=== PATIENT | male | born 1930 | race Caucasian/White ===

== ENCOUNTER 2017-02-17 16:15 | Outpatient (CLI) | payer MEDICARE ==
[2017-02-17 16:52] LABS: Hemoglobin 9.9 g/dL (14.0-18.0); Mean Corpuscular HGB CONC 31.9 g/dL (32.0-36.0); Mean Corpuscular Hemoglobin 35.2 pg (27.0-31.0); Mean Platelet Volume 6.5 fL (7.4-10.4); Platelet Count 274 thou/uL (130-400); RBC Distribution Width 14.4 % (11.5-14.5); Red Blood Cell (RBC) Count 2.82 mill/uL (4.70-6.10); White Blood Cell (WBC) Count 13.1 thou/uL (4.8-10.8)
[2017-02-17 17:16] LABS: Anion Gap 9 mmol/L (10-20); BUN (Urea Nitrogen) 15 mg/dL (8.4-25.7); Calc. Creatinine Clearance 0 mL/min (70-130); Calcium 9.7 mg/dL (7.8-10.44); Carbon Dioxide 32 mmol/L (23-31); Chloride 104 mmol/L (98-107); Estimated GFR-MDRD Greater than 90; Glucose 105 mg/dL (83-110); Potassium 4.5 mmol/L (3.5-5.1); Sodium 140 mmol/L (136-145)
== END 2017-02-17 16:16 | disposition home or self-care (01) ==
LOC: LABBT 16:15
PROVIDERS: ATTEND Thoracic Surgery (Cardiothoracic Vascular Surgery)
DX: Z01.812 Encounter for preprocedural laboratory examination (principal); K55.059 Acute (reversible) ischemia of intestine, part and extent unspecified; Z88.2 Allergy status to sulfonamides; Z88.0 Allergy status to penicillin
CPT/HCPCS: 80048; 85027

== ENCOUNTER 2017-02-21 05:56 | Day surgery (SDC) | payer MEDICARE ==
[2017-02-17 17:53] VITALS: BMI 22.1
[2017-02-21] MEDS ORDERED: Fentanyl 100 MCG/2 ML VIAL ONE (07:05)
[2017-02-21] MEDS ORDERED: Midazolam HCl 2 mg/2 ml Vial ONE (07:05)
[2017-02-21] MEDS ORDERED: Iopamidol 370 76% 50 ML VIAL FS ONE (08:10)
--- NOTE | 2017-02-21 09:05 | OP ---
DATE OF PROCEDURE: 02/21/2017 PREOPERATIVE DIAGNOSIS: Mesenteric ischemia - chronic. POSTOPERATIVE DIAGNOSIS: Mesenteric ischemia - chronic. PROCEDURE PERFORMED: Brachial approach to abdominal aortogram. TOTAL CONTRAST: 30 mL TOTAL FLUORO TIME: 16.3 minutes. DESCRIPTION OF PROCEDURE: After consent was obtained, the patient was brought to the solder making laborer and pl aced in supine position on the solder making laborer table. Left arm was prepped and draped in usual sterile fash ion. Arm was anesthetized with 1% lidocaine. Using ultrasound guidance, the left brachial artery wa s accessed with a micropuncture kit. The 4-Rwandan micropuncture sheath was exchanged for a 5-Rwandan sheath. Bentson wire and an angled glide catheter were then passed through the brachial and axillary artery into the thoracic aorta. The catheter and wire preferentially traveled into the ascending ao rta. This was then exchanged for a Contra catheter and the Contra catheter were used to guide the Gl idewire around the arch of the aorta into the descending thoracic aorta. Multiple catheters and guid ewires were then used to eventually traverse the thoracic aorta down into the abdominal aorta. The l ateral projection into the abdominal aorta was performed. Celiac artery was noted to be patent, but highly stenotic and highly calcified at the origin from the aorta. The SMA and JASON were never visual ized. Multiple guidewires and catheters were then used to try to access the celiac artery. I was ne lisandro successful in accessing the orifice of the celiac artery. Eventually, we abandoned all approache s and catheters, guidewires and sheaths were removed and manual pressure held for hemostasis. The pa tient tolerated the procedure well.
== END 2017-02-21 13:50 | disposition home or self-care (01) ==
LOC: CCL 05:56
PROVIDERS: ATTEND Thoracic Surgery (Cardiothoracic Vascular Surgery)
PROC: B3001ZZ Plain Radiography of Thoracic Aorta using Low Osmolar Contrast (ICD-10-PCS; principal; 2017-02-21)
DX: I73.89 Other specified peripheral vascular diseases (principal); K55.1 Chronic vascular disorders of intestine; I10 Essential (primary) hypertension; Z88.5 Allergy status to narcotic agent; Z88.0 Allergy status to penicillin; Z88.2 Allergy status to sulfonamides; Z88.1 Allergy status to other antibiotic agents; Z90.2 Acquired absence of lung [part of]; Z85.46 Personal history of malignant neoplasm of prostate; Z87.891 Personal history of nicotine dependence; Z82.49 Family history of ischemic heart disease and other diseases of the circulatory system
CPT/HCPCS: 36215; 75625; 76942; C1769 ×3; C1887 ×2; 99152; 99153; J1644; J2250; J3010

== ENCOUNTER 2017-07-29 07:59 | Outpatient (CLI) | payer MEDICARE ==
[2017-07-29 09:16] LABS: Estimated GFR-MDRD - POC Greater than 90
--- NOTE | 2017-07-29 11:06 | CT ---
CTA OF THE NECK UTILIZING iv CONTRAST AND 3d REFORMATTED IMAGING: INDICATION: Symptomatic stenosis f the left carotid. COMPARISON: CTA of the thorax dated 02/03/16. FINDINGS: There is moderate to high-grade stenosis involving the origin and proximal aspect of the left common carotid artery. There is a focus of moderate 50% stenosis involving the left mid common carotid terri ry on image 108 of series 2. There is a more focal area of severe stenosis involving the distal comm on carotid artery image 123 of series 2. This is involving approximately 90% of the luminal caliber of the artery. There is moderate 50% lumen caliber involving the left carotid bulb with severe narro wing of the origin of the left external carotid artery. There is moderate 50% luminal caliber narrow ing involving the proximal left internal carotid artery. The remaining cervical course and visualize d intracranial course of the left ICA appear within normal limits. The origin of the right common carotid artery from the right brachiocephalic artery appears patent. The right brachiocephalic artery origin and course are patent. The right subclavian artery course ap pears patent. There is prominent calcification involving the right carotid bulb. There is mild narrowing involving the origin of the right external carotid artery. There is severe narrowing involving the proximal r ight ICA causing 80% luminal caliber narrowing best seen on image 167 of series 2. The remaining ce rvical course and visualized intracranial course appear patent. There is severe narrowing along the origin of the right vertebral artery. There is severe narrowing involving the origin of the left vertebral artery. There is moderate to severe narrowing involving the origin of the left subclavian artery from the aor tic arch. There is pleural parenchymal scarring involving both lung apices with prominent emphysema. There is a saber-sheath trachea. There is slight increased prominence of the right azygous vein which may be related to some cardiac dysfunction. No pathologically enlarged lymph nodes are seen within the neck . The visualized aerodigestive tract appears within normal limits. No acute osseous abnormality noa dent. IMPRESSION: 1. High-grade stenosis involving the origin of the left common carotid artery and distal aspect of t he left common carotid artery. There is moderate narrowing involving the mid left common carotid art carlos and left carotid bulb. There is mild to moderate narrowing involving the proximal left internal carotid artery. 2. High-grade stenosis involving the proximal right internal carotid artery with 80% luminal caliber narrowing. There is high-grade stenosis involving the origins of both vertebral arteries. 3. High-grade stenosis involving the origin of the left external carotid artery. 4. Moderate to high-grade stenosis involving the origin of the left subclavian artery from the aorti c arch. 5. Emphysema and pleural parenchymal scarring. POS: [facility]
== END 2017-07-29 08:00 | disposition home or self-care (01) ==
LOC: CT 07:59
PROVIDERS: ATTEND Thoracic Surgery (Cardiothoracic Vascular Surgery)
DX: I65.23 Occlusion and stenosis of bilateral carotid arteries (principal); J43.9 Emphysema, unspecified; J98.4 Other disorders of lung
CPT/HCPCS: 70498; 82565

== ENCOUNTER 2017-08-12 05:41 | Inpatient (IN) | payer MEDICARE ==
[2017-08-12] MEDS ORDERED: SUGAMMADEX SODIUM 500 MG/5 ML VIAL ONE (06:36)
[2017-08-12] MEDS ORDERED: Clindamycin/D5W 900 mg/50 ml Premix Bag ONE (06:44)
[2017-08-12] MEDS ORDERED: Heparin 5,000 UNITS/ML VIAL ONE (06:44)
[2017-08-12] MEDS ORDERED: Levofloxacin 500 mg/D5W 100 ml Premix Bag ONE (06:44)
[2017-08-12 06:45] LABS: Hemoglobin 12.2 g/dL (14.0-18.0); Mean Corpuscular HGB CONC 32.5 g/dL (32.0-36.0); Mean Corpuscular Hemoglobin 35.5 pg (27.0-31.0); Mean Platelet Volume 6.2 fL (7.4-10.4); Platelet Count 197 thou/uL (130-400); RBC Distribution Width 13.9 % (11.5-14.5); Red Blood Cell (RBC) Count 3.43 mill/uL (4.70-6.10); White Blood Cell (WBC) Count 6.3 thou/uL (4.8-10.8)
[2017-08-12] MEDS ORDERED: Protamine Sulfate 50 MG/5 ML VIAL ONE (06:45)
[2017-08-12] MEDS ORDERED: Bupivacaine HCl 0.5%/Epinephrine 1:200,000/PF 30 ml Vial ONE (06:45)
[2017-08-12 07:07] LABS: Anion Gap 11 mmol/L (10-20); BUN (Urea Nitrogen) 11 mg/dL (8.4-25.7); Calc. Creatinine Clearance 67 mL/min (70-130); Calcium 9.4 mg/dL (7.8-10.44); Carbon Dioxide 33 mmol/L (23-31); Chloride 99 mmol/L (98-107); Estimated GFR-MDRD Greater than 90; Glucose 98 mg/dL (83-110); Potassium 4.1 mmol/L (3.5-5.1); Sodium 139 mmol/L (136-145)
[2017-08-12 07:11] LABS: Band 29 % (5-11); Eosinophils 1 % (0-10); Lymphocytes 15 % (21-51); MDiff Complete? YES; Macrocytosis SLIGHT = 6-15 cells (100X) (0-5/hpf); Monocytes 12 % (0-10); Myelocyte 2 % (0-0); Neutrophil 41 % (42-75); PLT Morphology Comment Appears Adequate
[2017-08-12] MEDS ORDERED: Remifentanil HCl 2 MG in Sodium Chloride 0.9% 100 ML IV SCH (07:30)
[2017-08-12] MEDS ORDERED: Phenylephrine 1% Nasal Spray 15 ML BOT ONE (08:13)
[2017-08-12] MEDS ORDERED: PHENYLEPHRINE-NS 100 MCG/ML 10 ML SYRINGE ONE ×2 (08:14→13:47)
--- NOTE | 2017-08-12 09:49 | PRG ---
DATE OF SERVICE: 08/12/2017 This morning, status post carotid surgery. He is doing well. PHYSICAL EXAMINATION: VITAL SIGNS: Sats are 90% on supplemental oxygen, pulse 80, blood pressure 138/80, respirations 18. He denies any difficulty breathing. CHEST: Chest reveals bilateral rhonchi and crackles. CARDIAC: Normal S1, S2. No gallops. ABDOMEN: Soft, no masses. IMPRESSION: 1. Chronic bronchitis. 2. Bronchiectasis. 3. Supraventricular tachycardia. 4. Carotid surgery. PLAN: Continue home medication. If he is stable tomorrow he can be discharged home. Follow up in t he office.
[2017-08-12] MEDS ORDERED: Fentanyl 100 MCG/2 ML VIAL SLOW IVP PRN (10:19)
[2017-08-12] MEDS ORDERED: Loratadine 10 MG TAB PO PRN (10:19)
[2017-08-12] MEDS ORDERED: Phenylephrine 10 MG/NS 250 ML 250 ML IVPB PRN (10:19)
[2017-08-12] MEDS ORDERED: Zolpidem Tartrate 5 MG TAB PO PRN (10:19)
[2017-08-12] MEDS ORDERED: Furosemide 20 MG TAB PO PRN (10:19)
[2017-08-12] MEDS ORDERED: Nitroglycerin 50 MG/250 ML BOT 250 ML IVPB PRN (10:19)
[2017-08-12] MEDS ORDERED: Acetaminophen 325 MG TAB PO PRN (10:19)
[2017-08-12 10:27] VITALS: BP 92/42; BMI 23.8
[2017-08-12] MEDS ORDERED: Ferrous Sulfate 325 MG TAB PO SCH (10:45)
[2017-08-12] MEDS ORDERED: Dronedarone HCl 400 MG TAB PO SCH (10:45)
[2017-08-12] MEDS ORDERED: PROVENTIL INHALER 6.7 G (200 INHALATIONS) INH PRN (10:45)
[2017-08-12] MEDS ORDERED: Cefuroxime Axetil 250 MG TAB PO SCH ×2 (10:45→21:00)
[2017-08-12] MEDS ORDERED: Clarithromycin 500 MG TAB PO SCH ×2 (10:45→21:00)
[2017-08-12] MEDS ORDERED: Folic Acid 1 MG TAB PO SCH (11:00)
[2017-08-12] MEDS ORDERED: Doxycycline Monohydrate 25 MG/5 ML PO SCH ×2 (11:00→21:00)
[2017-08-12] MEDS ORDERED: FlunisoLIDE 0.025% Nasal Spray 25 ml Bottle EA NARE SCH (11:00)
[2017-08-12] MEDS ORDERED: Potassium Chloride 20 MEQ TAB PO SCH (11:00)
[2017-08-12] MEDS ORDERED: Mometasone/Formoterol 120 PUFF INHALER INH SCH (11:00)
[2017-08-12] MEDS ORDERED: traMADol HCl 50 MG TAB PO SCH (11:00)
[2017-08-12] MEDS: Sodium Chloride 0.9% 1,000 ML IV SCH ×2 (11:25→21:25)
--- NOTE | 2017-08-12 11:53 | OP ---
DATE OF PROCEDURE: 08/12/2017 PREOPERATIVE DIAGNOSIS: Symptomatic left carotid stenosis. POSTOPERATIVE DIAGNOSIS: Symptomatic left carotid stenosis. PROCEDURE: Extended left carotid endarterectomy near the clavicle and extending all the way up throu gh the bulb approximately 2 cm distal to the carotid bifurcation. Note, a patch angioplasty was not performed due to the patient's chronic bronchiectasis and infection problems. The patient was not ab le to be shunted due to the length of the endarterectomy. SURGEON: Tucker Tinoco M.D. ANESTHESIA: General endotracheal. ESTIMATED BLOOD LOSS: Less than 100 mL. PROCEDURE IN DETAIL: After consent was obtained, the patient was brought to operating room and place d supine on the operating room table. Appropriate anesthetic monitor was placed and general endotrac heal anesthesia induced. Head was rotated to the right. Left neck was prepped and draped in usual s terile fashion. Joints were appropriately supported and padded. Skin incision was made along the anterior border of sternocleidomastoid. This was later extended jemal nward towards the clavicle. Dissection through the platysma was obtained with cautery. Sternocleido mastoid was mobilized. Jugular vein was mobilized. Facial vein branches clips and ties. Car otid sheath was entered and the common external and internal carotid arteries were carefully exposed. A 5000 units of heparin was given. A soft spot in the common carotid artery was able to be located very proximally. The distal internal carotid artery was also soft. The remainder of the carotid wa s essentially calcified. After 3 minutes, internal, common, and external carotid arteries were seria lly clamped. The incision was made on the common carotid artery extended through the near occlusion of the bulb and up into the internal carotid artery distal to plaque. Endarterectomy was then perfor med using good hemostats. A good tapered distal endpoint was obtained. Eversion endarterectomy of t he external carotid artery was performed. Medial fibers were debrided. Artery was flushed with hepa rinized saline. The artery was closed with running 6-0 Prolene suture. Prior to completion of the s uture line, arteries were backbled and flushed with heparinized saline. Suture line was completed an d tied. A 25 mg of protamine was administered. Hemostasis was ensured. Wounds were copiously irrig ated, closed in layers. Dermabond applied to the skin. The patient was awakened and neurologically intact in the operating room. The patient was then transferred to the intensive care unit in stable condition. Needle, sponge, and instrument counts were all reported correct at the end of the procedu re.
[2017-08-12] MEDS ORDERED: Albuterol Sulfate 2.5 mg/3 ml Neb NEB SCH (12:30)
[2017-08-12] MEDS ORDERED: Ondansetron HCl/PF 4 MG/2 ML Vial ONE (13:47)
[2017-08-12] MEDS ORDERED: Ketorolac Tromethamine 30 MG/ML VIAL ONE (13:47)
[2017-08-12] MEDS ORDERED: Glycopyrrolate 0.2 MG/ML 5 ML SYRINGE ONE (13:47)
[2017-08-12] MEDS ORDERED: PROPOFOL 200 MG/20 ML VIAL ONE (13:47)
[2017-08-12] MEDS ORDERED: ePHEDrine/0.9% NaCl/PF SYRINGE 50 mg/10 ml ONE (13:47)
[2017-08-12] MEDS ORDERED: Dexamethasone 20 MG/5 ML VIAL ONE (13:47)
[2017-08-12] MEDS ORDERED: Heparin 10,000 UNITS/ 10 ML VIAL ONE (13:47)
[2017-08-12] MEDS: Pramipexole Di-HCl 1 MG TAB PO SCH ×2 (13:56→21:41)
[2017-08-12] MEDS: traMADol HCl 50 MG TAB PO SCH ×2 (13:57→21:44)
[2017-08-12] MEDS: Mometasone/Formoterol 120 PUFF INHALER INH SCH (19:12)
[2017-08-12] MEDS ORDERED: Simvastatin 5 MG TAB PO SCH (21:00)
[2017-08-12] MEDS ORDERED: Latanoprost 0.005% Ophth Soln 2.5 ml Bottle EA EYE SCH (21:00)
[2017-08-12] MEDS ORDERED: Tamsulosin HCl 0.4 MG CAP PO SCH (21:00)
[2017-08-12] MEDS ORDERED: Acetaminophen 325 MG TAB PO SCH (21:00)
[2017-08-12] MEDS: Dronedarone HCl 400 MG TAB PO SCH (21:41)
[2017-08-12] MEDS: guaiFENesin ER 600 MG TAB PO SCH (21:42)
[2017-08-13] MEDS ORDERED: predniSONE 5 MG TAB PO SCH (08:00)
[2017-08-13] MEDS ORDERED: Potassium Chloride 20 MEQ TAB PO SCH (09:00)
[2017-08-13] MEDS ORDERED: FlunisoLIDE 0.025% Nasal Spray 25 ml Bottle EA NARE SCH (09:00)
[2017-08-13] MEDS ORDERED: Ferrous Sulfate 325 MG TAB PO SCH (09:00)
[2017-08-13] MEDS ORDERED: Folic Acid 1 MG TAB PO SCH (09:00)
[2017-08-13] MEDS: Pramipexole Di-HCl 1 MG TAB PO SCH (09:24)
[2017-08-13] MEDS: Sodium Chloride 0.9% 1,000 ML IV SCH (09:24)
[2017-08-13] MEDS: Mometasone/Formoterol 120 PUFF INHALER INH SCH ×2 (10:19→11:37)
[2017-08-13] MEDS: Dronedarone HCl 400 MG TAB PO SCH (10:22)
[2017-08-13] MEDS: guaiFENesin ER 600 MG TAB PO SCH (10:23)
[2017-08-13] MEDS: traMADol HCl 50 MG TAB PO SCH (10:23)
[2017-08-13 11:31] VITALS: TEMP 100
--- NOTE | 2017-08-13 14:00 | PRG ---
DATE OF SERVICE: 08/13/2017 SUBJECTIVE: Mr. Banks is in no distress. He has no complaints. He feels like he is ready to go home . He is on nitroglycerin drip. His blood pressure is 176/85. At this time, he is getting his morni ng dose of Cardizem 120 mg. Overnight, his blood pressure has been reasonably controlled in 160s although after surgery to be better than yesterday afternoon, he was in 130s-140s. Suspect once he starts absorbing his Cardiz em, his blood pressure will be better and will be off the nitroglycerin. PHYSICAL EXAMINATION: LUNGS: Remarkable for crackles at both lung bases. CARDIOVASCULAR: Regular rhythm. ABDOMEN: Soft and nontender. EXTREMITIES: Without asymmetry. He has no focal neurological complaints or deficits. LABORATORY DATA: White count 6.3 yesterday, hemoglobin 12.2. Electrolytes were normal yesterday. IMPRESSION: 1. Status post carotid endarterectomy. 2. Underlying chronic bronchitis. 3. Underlying bronchiectasis. 4. Hypertension. Hopefully, this will improve with his Cardizem, I suspect it will. It might do be tter with a higher dose of Cardizem twice a day since he says his blood pressure is up and down at ho me.
--- NOTE | 2017-08-15 14:24 | DIS ---
Mr. Banks was brought in for elective left carotid endarterectomy. He underwent an extended endartere ctomy beginning down at the level of the clavicle extending through the bulb onto the internal caroti d artery, approximately 2 cm distal from the bulb. There was extensive plaque that was removed and c leared. We did not do patch angioplasty due to the long nature of the endarterectomy and inability t o shunt during the procedure. Postoperatively, he was neurologically intact. He did well and was di scharged home the following morning on the same medications he was admitted with.
== END 2017-08-13 12:02 | disposition home or self-care (01) | DRG 38 ==
LOC: SURG A 05:41 → CCU 10:02
PROVIDERS: ADMIT Thoracic Surgery (Cardiothoracic Vascular Surgery); ATTEND Thoracic Surgery (Cardiothoracic Vascular Surgery)
PROC: 03CN0ZZ Extirpation of Matter from Left External Carotid Artery, Open Approach (ICD-10-PCS; principal; 2017-08-12)
DX: I65.22 Occlusion and stenosis of left carotid artery (principal); I47.1 Supraventricular tachycardia; I10 Essential (primary) hypertension; J47.9 Bronchiectasis, uncomplicated; I73.89 Other specified peripheral vascular diseases; Z88.1 Allergy status to other antibiotic agents; Z88.5 Allergy status to narcotic agent; Z88.0 Allergy status to penicillin; Z87.891 Personal history of nicotine dependence; Z90.2 Acquired absence of lung [part of]; Z86.718 Personal history of other venous thrombosis and embolism; Z85.46 Personal history of malignant neoplasm of prostate; Z86.69 Personal history of other diseases of the nervous system and sense organs
CPT/HCPCS: 36415; 80048; 85025; 94640; 94664; J0670; J1100; J1642; J1644; J1885; J1956; J2405; J2704; J2720; J3490; J7050; J7611; J7620

== ENCOUNTER 2018-02-10 14:46 | Outpatient (CLI) | payer MEDICARE ==
--- NOTE | 2018-02-10 16:42 | MRI ---
CERVICAL SPINE MRI WITHOUT CONTRAST: 02/10/18 HISTORY: Chronic neck pain. COMPARISON: None. TECHNIQUE: MRI cervical spine is performed without intravenous gadolinium administration. Multisequential, multi planar imaging is performed. FINDINGS: There is 2 mm of anterolisthesis of C2 upon C3. There is reversal of normal cervical kyphosis startin g at the C5 level. There is appropriate T1 marrow signal intensity of the cervical vertebrae. No evid ence of fracture. No significant STIR hyperintensity to suggest vertebral body edema or ligamentous i njury. The visualized brain parenchyma, cervicomedullary junction, cervical cord, and the upper thora cic cord have a normal size and signal intensity. C2-C3: There is a central/left paracentral disc protrusion. Minimal mass effect upon the left hemico rd. Mild central canal stenosis. Right neural foramen is patent. Mild left foraminal narrowing. C3-C4: Severe loss of disc space height. Generalized disc osteophyte complex effaces the ventral suba rachnoid space. There is deformity upon the central and left paracentral cord, without T2 hyperintens ity in the cord. Moderate central canal stenosis. Severe right and moderate to severe left foraminal narrowing. C4-C5: Severe loss of disc space height. Generalized disc osteophyte complex abuts the thecal sac. Ve ntral subarachnoid space is nearly effaced. There is deformity of the cervical spine without T2 hyper intensity of the cord. Moderate central canal stenosis. Moderate bilateral foraminal narrowing. C5-C6: Broad based osteophyte complex abuts the thecal sac. Subarachnoid space is effaced. Moderate t o severe central canal stenosis. There is deformity of the cervical cord, without T2 hyperintensity o f the cord. Moderate bilateral foraminal narrowing. C6-C7: There is a broad based disc osteophyte complex that abuts the thecal sac. There is moderate ce ntral canal stenosis. Mild to moderate right and moderate left foraminal narrowing. C7-T1: There is severe loss of disc space height. There is a central/left paracentral disc protrusion . Moderate central canal stenosis. Mild bilateral foraminal narrowing. IMPRESSION: Degenerative changes of the cervical spine as above. There is significant multilevel neural foramina l narrowing and central canal stenosis, on the basis of degenerative change. POS: [facility]
== END 2018-02-10 14:47 | disposition home or self-care (01) ==
LOC: SCSMRI 14:46
PROVIDERS: ATTEND Anesthesiology Pain Medicine
DX: M47.22 Other spondylosis with radiculopathy, cervical region (principal); M48.02 Spinal stenosis, cervical region
CPT/HCPCS: 72141

== ENCOUNTER 2018-04-03 08:43 | Emergency (ER) | payer MEDICARE ==
[2018-04-03 09:20] LABS: #Eosinphils 0.1 thou/uL (0.0-0.7); #Lymphocytes 0.5 thou/uL (1.20-3.40); %Basophils 0.2 % (0.0-1.0); %Eosinophils 0.9 % (0.0-10.0); %Monocytes 8.9 % (0.0-10.0)
[2018-04-03 09:30] LABS: Mean Corpuscular Hemoglobin 36.1 pg (27.0-31.0); Mean Platelet Volume 7.7 fL (7.4-10.4); Platelet Count 154 thou/uL (130-400); Red Blood Cell (RBC) Count 3.31 mill/uL (4.70-6.10); White Blood Cell (WBC) Count 11.6 thou/uL (4.8-10.8)
[2018-04-03 09:37] LABS: MDiff Complete? YES; Macrocytosis MODERATE=16-30 cells (100X) (0-5/hpf); Platelet Morphology Comment Appears Adequate; Polychromasia SLIGHT = 2-3 cells (100X) (0-2/hpf)
[2018-04-03 09:38] LABS: ALT (SGPT) 11 U/L (8-55); AST (SGOT) 17 U/L (5-34); Albumin 3.5 g/dL (3.4-4.8); Alkaline Phosphatase 49 U/L (40-150); Anion Gap 11 mmol/L (10-20); BUN (Urea Nitrogen) 22 mg/dL (8.4-25.7); Bilirubin, Total 0.2 mg/dL (0.2-1.2); Calc. Creatinine Clearance 0 mL/min (70-130); Calcium 9.4 mg/dL (7.8-10.44); Carbon Dioxide 31 mmol/L (23-31); Chloride 103 mmol/L (98-107); Estimated GFR-MDRD 86; Globulin 2.8 g/dL (2.4-3.5); Glucose 96 mg/dL (83-110); Potassium 3.9 mmol/L (3.5-5.1); Protein, Total 6.3 g/dL (5.8-8.1); Sodium 141 mmol/L (136-145)
--- NOTE | 2018-04-03 10:22 | RAD ---
CHEST 1 VIEW: Date: 04/03/18 HISTORY: Shortness of breath. COMPARISON: Radiograph dated 04/22/16. FINDINGS: There is elevation of the right hemidiaphragm, chronic. There is scarring in both lower lobes. No pneumothorax. Dense calcification transverse aorta. There is scarring and encapsulation of the bi lateral lung apices, which gives the appearance of pneumothorax, although is not real as there is sca rring and extrapleural fat taking the places of the pleural space in the upper lobes bilaterally. IMPRESSION: Chronic findings. No acute intrathoracic abnormality. POS: [facility]
== END 2018-04-03 11:17 | disposition home or self-care (01) ==
LOC: ERS 08:43
DX: I48.92 Unspecified atrial flutter (principal); I10 Essential (primary) hypertension; F32.9 Major depressive disorder, single episode, unspecified; J44.9 Chronic obstructive pulmonary disease, unspecified; Z86.73 Personal history of transient ischemic attack (TIA), and cerebral infarction without residual deficits; Z87.891 Personal history of nicotine dependence; Z79.51 Long term (current) use of inhaled steroids; Z79.899 Other long term (current) drug therapy
CPT/HCPCS: 36415; 71045; 80053; 83880; 84484; 85025; 93005

== ENCOUNTER 2018-05-17 07:15 | Day surgery (SDC) | payer MEDICARE ==
[2018-05-16 09:48] VITALS: BMI 22.8
[2018-05-17] MEDS ORDERED: Ketamine 50 MG/ML (10ML VIAL) ONE (09:15)
--- NOTE | 2018-05-17 11:15 | OP ---
DATE OF PROCEDURE: 05/17/2018 PROCEDURES PERFORMED: Esophagogastroduodenoscopy with biopsy and esophageal dilation over guidewire. PREOPERATIVE DIAGNOSIS: Esophageal dysphagia. DESCRIPTION OF PROCEDURE: Informed consent was obtained from the patient. He was sedated with total intravenous anesthesia. The bite block was placed and the endoscope was advanced easily to the second portion of the duodenum and retroflexion was performed in the stomach. The esophagus was normal overall. There is no focal stricture. I passed an 18 mm Savary dilator over a guidewire throughout the esophagus without any change on second look endoscopy. There was a 5 cm hiatal hernia present. There was an 8 mm thin narrow ulcer in the body of the stomach. The biopsies of the ulcer were biopsied; however, this does not appear to have an malignant appearance. The remainder of the gastric mucosa was unremarkable. The pylorus and first and second portions of the duodenum were normal. IMPRESSION: 1. A 5 cm hiatal hernia. 2. An 8 mm narrow ulcer in the body of the stomach. The edges of the ulcers were biopsied; however, this does not have a obvious malignant appearance. 3. The esophagus overall appeared unremarkable. I passed an 18 mm Savary dilator through the esophagus with no change on second look endoscopy. RECOMMENDATIONS: 1. Continue proton pump inhibitor. 2. Follow up in GI clinic to evaluate response to the esophageal dilation. 3. Await histopathology. 4. Avoid NSAIDs. 5. He should be able to restart his Eliquis today. Job ID: [id number]
[2018-05-17] MEDS ORDERED: PROPOFOL 200 MG/20 ML VIAL ONE (14:35)
== END 2018-05-17 11:06 | disposition home or self-care (01) ==
LOC: SDC 07:15
PROVIDERS: ATTEND Internal Medicine Gastroenterology
PROC: 0DB58ZX Excision of Esophagus, Via Natural or Artificial Opening Endoscopic, Diagnostic (ICD-10-PCS; principal; 2018-05-17)
PROC: 0D758ZZ Dilation of Esophagus, Via Natural or Artificial Opening Endoscopic (ICD-10-PCS; 2018-05-17)
DX: R13.19 Other dysphagia (principal); K25.9 Gastric ulcer, unspecified as acute or chronic, without hemorrhage or perforation; K31.9 Disease of stomach and duodenum, unspecified; K44.9 Diaphragmatic hernia without obstruction or gangrene; J44.9 Chronic obstructive pulmonary disease, unspecified; I48.91 Unspecified atrial fibrillation
CPT/HCPCS: 88305; 88312; J2704

== ENCOUNTER 2018-08-14 14:49 | Outpatient (CLI) | payer MEDICARE ==
--- NOTE | 2018-08-14 15:20 | RAD ---
2 VIEWS CHEST: Date: 08/14/18 COMPARISON: 12/02/15. 04/03/18. HISTORY: Dyspnea. FINDINGS: 2 views of the chest show a cardiomediastinal silhouette which is upper limits of normal in size with atherosclerotic calcifications in the aorta. Diffuse increased interstitial lung markings are presen t. There is stable elevation of the right hemidiaphragm. Biapical pleural thickening is stable. IMPRESSION: Stable chronic lung disease. POS: [facility]
== END 2018-08-14 14:50 | disposition home or self-care (01) ==
LOC: RAD 14:49
PROVIDERS: ATTEND Internal Medicine Pulmonary Disease
DX: R06.00 Dyspnea, unspecified (principal); J98.4 Other disorders of lung
CPT/HCPCS: 71046

== ENCOUNTER 2018-08-15 10:48 | Outpatient (CLI) | payer MEDICARE ==
--- NOTE | 2018-08-15 12:28 | MRI ---
MRI LUMBAR SPINE WITHOUT CONTRAST: INDICATIONS: Lumbar radiculopathy. Lumbar stenosis with neurogenic claudication. TECHNIQUE: Multiplanar, multisequential imaging of the lumbar spine obtained. FINDINGS: There is anterior wedging of the T12 vertebra with loss of anterior height of 60% to 70%. No posteri or retropulsion. Posterior height is maintained. No edema is seen at this vertebral body, indicatin g a stable compression deformity. Lumbar vertebrae maintain height. There is a scoliotic curvature with convexity to the right with ap ex at L2-L3. Degenerative spurring from all lumbar vertebrae. Loss of disk space at all lumbar leve ls. Slight posterior listhesis at the L1-L2, L2-L3, and L3-L4 levels. Anterior wedging of the T12 vertebra with loss of anterior height of 50% to 60%. No edema present, i ndicating a chronic stable compression deformity. Minimal posterior retropulsion of the posterior-tineo perior corner of T12. At the T11-T12 disk level, slight disk bulge, associated with minimal posterior retropulsion of the p osterior-superior corner of T12, is seen. These changes flatten the thecal sac but do not significan tly impinge on the conus. No significant disk bulge at T12-L1. At L1-L2, there is slight posterior listhesis with diffuse disk bulge flattening the thecal sac. Fac et and ligamentous hypertrophy. Mild central canal stenosis. Left foraminal narrowing due to disk b ulge and hypertrophic change. At L2-L3, diffuse disk bulge, compatible with hypertrophic change, results in mild central canal sten osis. Left foraminal encroachment due to disk osteophyte complex. At L3-L4, slight posterolisthesis is present with diffuse disk bulge flattening the thecal sac. Face t and ligamentous hypertrophy. Mild to moderate central canal stenosis at this level. Right foramin al stenosis, exacerbated by the scoliotic curvature. At L4-L5, mild disk bulge. Facet and ligamentous hypertrophy. Mild central canal stenosis. Bilater al foraminal narrowing due to facet hypertrophy. Asymmetric disk osteophyte complex is seen to the l eft. At L5-S1, broad-based disk bulge abuts the thecal sac. No significant central canal stenosis. Mild right foraminal encroachment due to disk osteophyte complex and facet hypertrophy. There appears to be an exophytic cyst from the superior pole, left kidney, inadequately evaluated. T here are other renal cystic lesions bilaterally. This large exophytic cyst from the superior left ki dney appears to have increased in size when compared to a CT of 04/06/2016. IMPRESSION: Multilevel degenerative disk changes at the lumbar spine with areas of central canal and foraminal st enosis, as described above. POS: [facility]
== END 2018-08-15 10:49 | disposition home or self-care (01) ==
LOC: SCSMRI 10:48
PROVIDERS: ATTEND Anesthesiology Pain Medicine
DX: M48.062 Spinal stenosis, lumbar region with neurogenic claudication (principal); M51.16 Intervertebral disc disorders with radiculopathy, lumbar region
CPT/HCPCS: 72148

== ENCOUNTER 2018-08-17 21:51 | Inpatient (IN) | payer MEDICARE ==
--- NOTE | 2018-08-17 22:33 | RAD ---
PORTABLE CHEST ONE VIEW: 08/17/18 at 10:11 p.m. HISTORY: Shortness of breath. FINDINGS: Comparison made with exam of 08/14/18. The heart is enlarged. The aorta is tortuous. Chronic changes are again seen bilaterally. No lobar co nsolidation, pneumothoraces, rod pulmonary edema or large effusions are seen. There is continued elevation of the right hemidiaphragm. IMPRESSION: No acute process. POS: [facility]
[2018-08-17] MEDS ORDERED: methylPREDNISolone Sod Succ/PF 125 MG/2 ML VIAL ONE (22:46)
[2018-08-17 22:49] LABS: Red Blood Cell (RBC) Count 3.35 mill/uL (4.70-6.10); White Blood Cell (WBC) Count 11.7 thou/uL (4.8-10.8)
[2018-08-17 23:07] LABS: #Lymphocytes 0.3 thou/uL (1.20-3.40); #Monocytes 0.8 thou/uL (0.11-0.59); #Neutrophils 10.6 thou/uL (1.40-6.50); %Eosinophils 0.2 % (0.0-10.0); %Lymphocytes 2.3 % (21.0-51.0); %Monocytes 7.1 % (0.0-10.0); %Neutrophils 90.4 % (42.0-75.0); ALT (SGPT) 12 U/L (8-55); AST (SGOT) 12 U/L (5-34); Albumin 3.6 g/dL (3.4-4.8); Alkaline Phosphatase 57 U/L (40-150); Anion Gap 12 mmol/L (10-20); BUN (Urea Nitrogen) 22 mg/dL (8.4-25.7); Bilirubin, Total 0.2 mg/dL (0.2-1.2); Calc. Creatinine Clearance 0 mL/min (70-130); Calcium 9.7 mg/dL (7.8-10.44); Carbon Dioxide 34 mmol/L (23-31); Chloride 95 mmol/L (98-107); Estimated GFR-MDRD 71; Globulin 3.6 g/dL (2.4-3.5); Glucose 115 mg/dL (83-110); MDiff Complete? YES; Macrocytosis SLIGHT = 6-15 cells (100X) (0-5/hpf); Mean Corpuscular HGB CONC 31.4 g/dL (32.0-36.0); Mean Corpuscular Hemoglobin 35.7 pg (27.0-31.0); Mean Platelet Volume 7.1 fL (7.4-10.4); Platelet Count 195 thou/uL (130-400); Platelet Morphology Comment Appears Adequate; Potassium 5.1 mmol/L (3.5-5.1); Protein, Total 7.2 g/dL (5.8-8.1); RBC Distribution Width 13.1 % (11.5-14.5); Sodium 136 mmol/L (136-145)
[2018-08-17] MEDS ORDERED: Cefepime 2 GM VIAL ONE ×2 (23:40→23:46)
[2018-08-18] MEDS ORDERED: cefTRIAXone\\ROCEPHIN 1 GM VIAL ONE (00:03)
[2018-08-18] MEDS ORDERED: Azithromycin 500 MG VIAL ONE (01:20)
[2018-08-18] MEDS ORDERED: cloNIDine 0.1 MG TAB ONE ×2 (01:53→06:43)
[2018-08-18] MEDS ORDERED: Acetaminophen 325 MG TAB PO PRN (01:58)
[2018-08-18] MEDS ORDERED: PROVENTIL INHALER 6.7 G (200 INHALATIONS) INH PRN (02:05)
[2018-08-18] MEDS ORDERED: Loratadine 10 MG TAB PO PRN (02:11)
[2018-08-18] MEDS ORDERED: Potassium Chloride 20 MEQ TAB PO SCH (02:15)
[2018-08-18] MEDS ORDERED: Potassium Chloride 20 MEQ TAB ONE (03:16)
[2018-08-18 03:43] LABS: #Basophils 0.1 thou/uL (0.0-0.2); #Lymphocytes 0.3 thou/uL (1.20-3.40); #Monocytes 0.1 thou/uL (0.11-0.59); #Neutrophils 9.7 thou/uL (1.40-6.50); %Basophils 0.8 % (0.0-1.0); %Eosinophils 0.1 % (0.0-10.0); %Lymphocytes 3.2 % (21.0-51.0); %Monocytes 0.5 % (0.0-10.0); %Neutrophils 95.4 % (42.0-75.0); Hemoglobin 12.5 g/dL (14.0-18.0); Mean Corpuscular HGB CONC 31.3 g/dL (32.0-36.0); Mean Corpuscular Hemoglobin 35.9 pg (27.0-31.0); Mean Platelet Volume 6.9 fL (7.4-10.4); Platelet Count 198 thou/uL (130-400); RBC Distribution Width 13.1 % (11.5-14.5); Red Blood Cell (RBC) Count 3.49 mill/uL (4.70-6.10); White Blood Cell (WBC) Count 10.2 thou/uL (4.8-10.8)
[2018-08-18 04:03] LABS: Anion Gap 11 mmol/L (10-20); BUN (Urea Nitrogen) 19 mg/dL (8.4-25.7); Calc. Creatinine Clearance 0 mL/min (70-130); Calcium 9.9 mg/dL (7.8-10.44); Carbon Dioxide 33 mmol/L (23-31); Chloride 95 mmol/L (98-107); Estimated GFR-MDRD 75; Glucose 135 mg/dL (83-110); Potassium 4.7 mmol/L (3.5-5.1); Sodium 134 mmol/L (136-145)
--- NOTE | 2018-08-18 05:36 | HP ---
CHIEF COMPLAINT: Shortness of breath and cough. HISTORY OF PRESENT ILLNESS: This patient is an 88-year-old male with a history of significant COPD, followed by Dr. Russell. The patient reports that he had recently had increasing shortness of breath with exertion and a cough productive of discolored sputum. He presented to Dr. Russell and was started on p.o. antibiotics and prednisone. The patient reports that on this particular occasion, his symptoms did not improve and actually seemed to progress. When he got to the point that he was feeling short of breath even at rest, he decided to present to the emergency department. He has been using his usual home bronchodilators without substantial improvement. The patient reports that the primary trigger for him today is that he had some company and they stayed for a couple hours and simply trying to talk to them made him extremely short of breath and prompted him to come seek more aggressive medical attention. REVIEW OF SYSTEMS: He denies any chest pain, fevers, or chills. He does report a sore area on his right tongue, which he believes has been present for longer than he would think would be normal. Reports his chest feels a little bit tight and sore from coughing and he does indicate that today he had a pretty profuse sweats when he called for an ambulance. Other than that, all systems were reviewed, all pertinent positives and negatives noted in history of present illness. PAST MEDICAL HISTORY: Notable for prior CVA, prostate cancer in 2002, GERD, hypertension, dyslipidemia, COPD, bronchiectasis, SVT status post failed ablation, osteoarthritis. He also reports that he had an episode of intestinal angina but states that the physician in [place] did some type of radial artery procedure that resolved it. PAST SURGICAL HISTORY: Right lower lobe partial lobectomy secondary to pulmonary hemorrhage, appendectomy, herniorrhaphy, bilateral cataract ectomy, carpal tunnel release on the left and the above-mentioned cardiac ablation procedure. He also states he is currently receiving back injections from Dr. Calvo. The patient had a left carotid endarterectomy with extensive cleanout in August 2017. PSYCH HISTORY: The patient does admit to some anxiety and depression, but believes it is not too severe. SOCIAL HISTORY: The patient is . He ambulates generally well, but will occasionally use a walker if he has some vertigo. He is a nondrinker, nondrug user. He quit smoking as a new year's resolution in 1965. He is a DNAR and his daughter is his surrogate decision maker should that become necessary. ALLERGIES: MEPERIDINE, CODEINE, PENICILLIN, SULFAMETHOXAZOLE, TRIMETHOPRIM. CURRENT MEDICATIONS: 1. Albuterol 2 puffs t.i.d. p.r.n. 2. Folic acid 1 mg daily. 3. Pramipexole 1 mg q.i.d. 4. Zolpidem 5 mg at bedtime p.r.n. insomnia. 5. Prednisone 5 mg daily. 6. Pantoprazole 40 mg one p.o. daily 30 minutes before breakfast. 7. Acetaminophen 325 mg daily p.r.n. 8. Tramadol 50 mg t.i.d. 9. Multaq 400 mg b.i.d. 10. Eliquis 5 mg daily. 11. Simvastatin 5 mg daily. 12. Loratadine 10 mg p.r.n. 13. Guaifenesin 800 mg t.i.d. 14. Flunisolide 25 mcg two sprays per nostril daily. 15. Budesonide 0.25 mg inhaled b.i.d. 16. Tamsulosin 0.4 mg daily. 17. Diltiazem 120 mg p.o. daily. 18. Potassium 20 mEq p.o. daily. PHYSICAL EXAMINATION: VITAL SIGNS: BP 158/70, pulse 94, respirations 16, temperature is 98, O2 saturation 94% on 2 L nasal cannula. GENERAL APPEARANCE: Age-appropriate male. He is in no significant distress presently, says he is feeling some better. He is wearing nasal cannula oxygen. HEENT: LALI. No OP lesions. The patient does have an area that is approximately 1 cm x 0.5 mm on the lateral right mid tongue that has a pale white plaque area. NECK: Supple and symmetric. No lymphadenopathy, JVD, or carotid bruits. HEART: Regular rate and rhythm without murmurs, gallops, or rubs. LUNGS: Have harsh rales scattered throughout all lung avendaño, but more concentrated in the left base. ABDOMEN: Slightly protuberant, but soft, nontender, and nondistended. Positive bowel sounds. No masses. No organomegaly. EXTREMITIES: No cyanosis, clubbing, or edema. He has diminished pulses in the lower extremities. PSYCH: The patient is actually quite, pleasant with normal affect and behavior. NEURO: The patient moves all extremities spontaneously. His cognition is normal. LABORATORY DATA: White count 11.7, hemoglobin 12.0, platelets 195, MCV is 114.0. D-dimer was 0.67. Sodium 136, potassium 5.1, chloride 95, CO2 of 34, BUN 22, creatinine is 1.0, GFR 71, glucose 115, AST is 12, ALT 12, alkaline phosphatase 57. BNP 44.7. Chest x-ray, heart was enlarged. The aorta was tortuous. Chronic changes seen bilaterally with no lobar consolidations or pulmonary edema. There is elevation of the right hemidiaphragm. EKG shows sinus rhythm at 88 beats per minute with some PACs. IMPRESSION AND PLAN: 1. Chronic obstructive pulmonary disease exacerbation. The patient also has some reported history of bronchiectasis and he has a productive cough consistent with bronchiectasis infection or bronchitis. We will admit the patient on IV steroids, IV antibiotics. We will start with Rocephin but if he does not improve quickly , may need to change for a better pseudomonal coverage given the bronchiectasis. We will continue bronchodilators, mucolytic, and consult Pulmonology. Maintain oxygen supplementation as needed. 2. Acute hypoxic respiratory failure. The patient is requiring supplemental oxygen to maintain normal saturations secondary to chronic obstructive pulmonary disease, bronchiectasis, and bronchitis. We will wean as tolerated. 3. Leukocytosis secondary to the recent steroids given as an outpatient. 4. Hypertension. Resume home medications. 5. Dyslipidemia. Resume specific home medications. 6. Chronic anticoagulation, presumably this is due to the patient's prior supraventricular tachycardia without any documentation that I can find to suggest that it was actually atrial fibrillation. 7. Leukoplakia of the tongue. Appears benign and related to the chronic irritation from a partial denture. Recommended follow up with Dentist/ENT as outpatient. Job ID: [id number] [facility]
[2018-08-18] MEDS ORDERED: methylPREDNISolone Sod Succ 40 MG VIAL ONE ×2 (06:04→11:53)
[2018-08-18] MEDS: methylPREDNISolone Sod Succ 40 MG VIAL IVP SCH ×4 (06:41→23:51)
[2018-08-18] MEDS: cloNIDine 0.1 MG TAB PO PRN ×2 (06:42→16:30)
[2018-08-18] MEDS ORDERED: Dronedarone HCl 400 MG TAB PO SCH (08:00)
--- NOTE | 2018-08-18 09:54 | CON ---
DATE OF CONSULTATION: HISTORY OF PRESENT ILLNESS: Wilbert Banks is an 88-year-old gentleman, who is well known to me. In fact, he was just seen in the office several days ago with increasing cough and grossly purulent sputum and shortness of breath. At that time, his examination revealed extensive rhonchi, but no wheezing. He is now telling me that last night, he started having more coughing and sweats, headache, more shortness of breath, and wheezing. He came to the hospital where apparently on top of his chronic lung disease, he was found to have an elevated heart rate. X-ray continued to show stable findings with bilateral chronic changes. This morning, he said he is feeling somewhat better. He has a history of chronic bronchitis and bronchiectasis with recurrent bronchopulmonary infection, on cyclic antibiotics for several years. He has tried a Vest for percussion therapy which he failed. He sees Cardiology for recurrent SVT. He underwent a recent left carotid surgery without much complication. In fact, he underwent a recent sleep study which is negative for sleep apnea, but consistent with severe hypoxemia. He is on 3 L nasal oxygen 24 hours a day. He has severe limitation to activity such that, on regular day, he can barely walk even 50 feet without getting markedly short of breath. He is a former smoker. PAST MEDICAL HISTORY: Otherwise pertinent for; 1. Recurrent SVT. 2. COPD. 3. CVA. 4. Prostate cancer. 5. Hypertension. 6. Bronchiectasis. PREVIOUS SURGERIES: 1. Lobectomy. 2. Right-sided previous ablation. 3. Appendix surgery. 4. Hernia surgery. 5. Cataract surgery. 6. Carpal tunnel surgery. 7. Carotid surgery. ALLERGIES: MULTIPLE; 1. DEMEROL. 2. CODEINE. 3. PENICILLIN. 4. SULFA. MEDICATIONS: Long list of home medication includes; 1. Low-dose prednisone 5 a day. 2. DuoNeb several times a day. 3. Dulera several times a day. 4. Eliquis 5 twice a day. 5. Multaq 200 twice a day. 6. Lasix 20 b.i.d. 7. Guaifenesin. 8. Mirapex 1.5 b.i.d. 9. Flomax 2 a day. REVIEW OF SYSTEMS: Otherwise negative. PHYSICAL EXAMINATION: VITAL SIGNS: His O2 saturation this morning is 97 on 3 L, pulse 85, respirations 18, blood pressure 143/63. GENERAL: He is awake, alert, and responsive. Says he is less short of breath. CHEST: Extensive rhonchi, crackles, and wheezing. Marked expiration prolongation. CARDIAC: Sinus tach. ABDOMEN: Soft. LABORATORY DATA: White count 10,000, H and H 12 and 37, platelet count is normal. Lytes are normal. IMPRESSION: 1. Acute on chronic respiratory failure, chronic obstructive pulmonary disease exacerbation, end-stage lung disease, bronchiectasis. 2. Recurrent supraventricular tachycardia. 3. Severe deconditioning. 4. Major anxiety. PLAN: Continue present treatment, steroid and neb treatment. Await culture. We will follow. Consultation note, 70 minutes, 50% in direct patient care. Job ID: [id number]
[2018-08-18] MEDS: Pramipexole Di-HCl 1 MG TAB PO SCH ×4 (10:56→20:04)
[2018-08-18] MEDS: Tamsulosin HCl 0.4 MG CAP PO SCH (10:58)
[2018-08-18] MEDS ORDERED: traMADol HCl 50 MG TAB ONE (11:04)
[2018-08-18] MEDS: Arformoterol 15 MCG/2 ML NEB NEB SCH ×2 (11:20→19:50)
[2018-08-18] MEDS: Dronedarone HCl 400 MG TAB PO SCH (16:30)
[2018-08-18] MEDS: Apixaban 5 MG TAB PO SCH (20:03)
[2018-08-18] MEDS: traMADol HCl 50 MG TAB PO PRN (20:04)
[2018-08-18] MEDS: Mometasone/Formoterol 120 PUFF INHALER INH SCH (20:51)
[2018-08-18] MEDS: cefTRIAXone\\ROCEPHIN 1 GM in Sodium Chloride 0.9% 100 ML IVPB SCH (23:52)
[2018-08-19] MEDS: Melatonin 3 MG TAB PO PRN (00:31)
[2018-08-19] MEDS: methylPREDNISolone Sod Succ 40 MG VIAL IVP SCH ×3 (05:27→17:10)
[2018-08-19] MEDS: Apixaban 5 MG TAB PO SCH ×2 (08:02→20:17)
[2018-08-19] MEDS: Pramipexole Di-HCl 1 MG TAB PO SCH ×4 (08:02→20:17)
[2018-08-19] MEDS: Dronedarone HCl 400 MG TAB PO SCH ×2 (08:02→17:10)
[2018-08-19] MEDS: Tamsulosin HCl 0.4 MG CAP PO SCH (08:03)
[2018-08-19] MEDS: Arformoterol 15 MCG/2 ML NEB NEB SCH ×2 (09:08→18:07)
[2018-08-19] MEDS: Mometasone/Formoterol 120 PUFF INHALER INH SCH ×2 (09:24→18:08)
--- NOTE | 2018-08-19 10:51 | CT ---
CT HEAD WITHOUT CONTRAST: Date: 08/19/18 INDICATON: Vertigo. COMPARISON: CT head dated 04/26/16. FINDINGS: Moderate chronic ischemic white matter changes again noted. Ventricles have normal size and position. Mild cortical volume loss. There is no evidence of intracranial hemorrhage. No mass, edema, or acute infarct identified. Sinuses are clear. IMPRESSION: No acute abnormality. POS: [facility]
--- NOTE | 2018-08-19 11:56 | PRG ---
DATE OF SERVICE: 08/19/2018 SUBJECTIVE: Mr. Banks is still struggling with his breathing. He says he does not feel much better compared to admission. OBJECTIVE: VITAL SIGNS: On exam, temperature 97.8, pulse 91, respirations 16, O2 saturation 93% on 3 L, and blood pressure 163/74. HEENT: Unremarkable. NECK: No adenopathy or JVD. LUNGS: Generalized poor air movement with occasional rhonchi. CARDIAC: S1 and S2, regular. ABDOMEN: Soft. EXTREMITIES: No edema. LABORATORY DATA: White blood cell count 10, hematocrit 39, and platelet count 198. Micro shows no growth to date. IMAGING STUDIES: A brain CT showed no acute abnormalities. ASSESSMENT: 1. Chronic obstructive pulmonary disease/bronchiectasis with exacerbation. 2. Acute on chronic hypoxic respiratory failure. PLAN: I told the patient improvement will take time. He is continuing on IV Rocephin, steroids, and nebulization treatments. Given his use of antibiotics prior to admission, he may require addition of a different antibiotic. I am not quite sure what he was taking at home prior to admission, but he says he was taking some kind of antibiotic. Job ID: [id number]
--- NOTE | 2018-08-19 13:44 | PDOC.PN ---
- Subjective Encounter Start Date: 08/19/18 Encounter Start Time: 09:00 Pt seen for followup re: acute on chronic hypoxic respiratory failure. Reports on and off episodes of dizziness. - Objective Resuscitation Status - Order Detail: 08/18/18 01:58 Resuscitation Status Routine Resuscitation Status: DNAR: NO Resuscitation Discussed with: Patient MAR Reviewed: Yes Vital Signs & Weight: Vital Signs (12 hours) Temp Pulse Resp BP Pulse Ox 08/19/18 09:24 91 16 08/19/18 09:09 93 L 08/19/18 09:08 91 16 08/19/18 08:00 93 L 08/19/18 07:48 97.8 F 91 20 163/74 H 93 L 08/19/18 05:15 97.7 F 90 18 134/62 91 L Weight Weight 138 lb 1 oz I&O: 08/18/18 08/19/18 08/20/18 06:59 06:59 06:59 Intake Total 1082 360 Output Total 360 Balance 722 360 Result Diagrams: 08/18/18 03:36 08/19/18 21:28 Additional Labs: Labs reviewed by me Phys Exam - Physical Examination Constitutional: NAD HEENT: moist MMs, TM's clear Neck: supple Respiratory: clear to auscultation bilateral Cardiovascular: RRR Gastrointestinal: soft Neurological: moves all 4 limbs Psychiatric: normal affect Dx/Plan (1) Acute on chronic respiratory failure with hypoxia Code(s): J96.21 - ACUTE AND CHRONIC RESPIRATORY FAILURE WITH HYPOXIA Status: Acute Comment: secondary to COPD exacerbation (2) COPD exacerbation Code(s): J44.1 - CHRONIC OBSTRUCTIVE PULMONARY DISEASE W (ACUTE) EXACERBATION Status: Acute Comment: continue oxygen, steroids, bronchodilators, ceftriaxone and levofloxacin (3) Dyslipidemia Code(s): E78.5 - HYPERLIPIDEMIA, UNSPECIFIED Status: Chronic Comment: continue simvastatin (4) Hypertension Code(s): I10 - ESSENTIAL (PRIMARY) HYPERTENSION Status: Chronic Qualifiers: Comment: monitor vital signs, titrate antihypertensives as needed - Plan * . Check CT brain to r/o bleed/stroke Review of Systems - Review of Systems Respiratory: Shortness of Breath, SOB with Excertion. negative: Cough, Pleuritic Pain, Wheezing Cardiovascular: negative: chest pain, palpitations, orthopnea, paroxysmal nocturnal dyspnea, edema, light headedness, other - Medications/Allergies Allergies/Adverse Reactions: Allergies Allergy/AdvReac Type Severity Reaction Status Date / Time meperidine HCl [From Demerol] Allergy Intermediate Nausea Verified 08/18/18 14: 57 codeine Allergy Verified 08/18/18 14:57 Penicillins Allergy Rash Verified 08/18/18 14:57 sulfamethoxazole Allergy Rash Verified 08/18/18 14:57 [From Bactrim] trimethoprim [From Bactrim] Allergy Rash Verified 08/18/18 14:57 Medications: Current Medications Acetaminophen (Tylenol) 650 mg PO Q4H PRN PRN Reason: Headache/Fever/Mild Pain (1-3) Albuterol Sulfate (Proventil Hfa) 2 puff INH Q6H PRN PRN Reason: SOB or Anxiety Albuterol/Ipratropium (Duoneb) 3 ml NEB [id number] PRN PRN Reason: SOB &/or Wheezing Last Admin: 08/18/18 16:01 Dose: 3 ml Albuterol/Ipratropium (Duoneb) 3 ml NEB TID-RT KAYLAN Last Admin: 08/19/18 09:08 Dose: 3 ml Apixaban (Eliquis) 5 mg PO BID KAYLAN Last Admin: 08/19/18 08:02 Dose: 5 mg Arformoterol Tartrate (Brovana) 15 mcg NEB BID-RT KAYLAN Last Admin: 08/19/18 09:08 Dose: 15 mcg Clonidine (Catapres) 0.1 mg PO Q4H PRN PRN Reason: SBP Greater Than 185 Last Admin: 08/18/18 16:30 Dose: 0.1 mg Dronedarone (Multaq) 200 mg PO BID-WM [facility] Last Admin: 08/19/18 08:02 Dose: 200 mg Ceftriaxone Sodium 1 gm/ (Sodium Chloride) 100 mls @ 200 mls/hr IVPB Q24HR KAYLAN Last Admin: 08/18/18 23:52 Dose: 100 mls Levofloxacin (Levaquin) 500 mg PO 1200 [facility] Last Admin: 08/19/18 11:53 Dose: 500 mg Loratadine (Claritin) 10 mg PO DAILYPRN PRN PRN Reason: Allergies Melatonin (Melatonin) 3 mg PO HS PRN PRN Reason: Insomnia Last Admin: 08/19/18 00:31 Dose: 3 mg Methylprednisolone Sodium Succinate (Solu-Medrol) 40 mg IVP Q6HR [facility] Last Admin: 08/19/18 11:53 Dose: 40 mg Mometasone Furoate/Formoterol Fumar (Dulera 200 Mcg/5 Mcg Inhaler) 2 puff INH BID-RT [facility] Last Admin: 08/19/18 09:24 Dose: 2 puff Pantoprazole Sodium (Protonix) 40 mg PO DAILY [facility] Last Admin: 08/19/18 08:03 Dose: 40 mg Pramipexole Dihydrochloride (Mirapex) 1 mg PO QID [facility] Last Admin: 08/19/18 11:53 Dose: 1 mg Tamsulosin HCl (Flomax) 0.4 mg PO DAILY [facility] Last Admin: 08/19/18 08:03 Dose: 0.4 mg Tramadol HCl (Ultram) 50 mg PO Q6H PRN PRN Reason: Pain Last Admin: 08/18/18 20:04 Dose: 50 mg
[2018-08-19] MEDS ORDERED: PROVENTIL INHALER 6.7 G (200 INHALATIONS) INH PRN (14:00)
[2018-08-19] MEDS: ALPRAZolam 0.25 MG TAB PO PRN (16:34)
[2018-08-19] MEDS: traMADol HCl 50 MG TAB PO PRN (20:21)
[2018-08-19] MEDS ORDERED: Adenosine 6 MG/2 ML VIAL ONE ×2 (21:19→21:22)
[2018-08-19] MEDS ORDERED: Adenosine 6 MG/2 ML VIAL IVP SCH (21:30)
[2018-08-19 22:02] LABS: Anion Gap 16 mmol/L (10-20); BUN (Urea Nitrogen) 30 mg/dL (8.4-25.7); Calc. Creatinine Clearance 55 mL/min (70-130); Calcium 9.1 mg/dL (7.8-10.44); Carbon Dioxide 25 mmol/L (23-31); Chloride 98 mmol/L (98-107); Estimated GFR-MDRD 89; Glucose 112 mg/dL (83-110); Magnesium 2.5 mg/dL (1.6-2.6); Potassium 5.4 mmol/L (3.5-5.1); Sodium 134 mmol/L (136-145)
[2018-08-19 22:05] LABS: Troponin I 0.036 ng/mL (< 0.028)
[2018-08-20] MEDS: cefTRIAXone\\ROCEPHIN 1 GM in Sodium Chloride 0.9% 100 ML IVPB SCH ×2 (00:32→23:18)
[2018-08-20] MEDS: methylPREDNISolone Sod Succ 40 MG VIAL IVP SCH ×5 (00:33→23:17)
[2018-08-20] MEDS: Melatonin 3 MG TAB PO PRN ×2 (00:35→23:17)
[2018-08-20 01:02] LABS: Troponin I 0.047 ng/mL (< 0.028)
[2018-08-20] MEDS: Mometasone/Formoterol 120 PUFF INHALER INH SCH ×2 (07:11→18:57)
[2018-08-20] MEDS: Arformoterol 15 MCG/2 ML NEB NEB SCH ×2 (07:15→18:57)
[2018-08-20] MEDS: Tamsulosin HCl 0.4 MG CAP PO SCH (08:26)
[2018-08-20] MEDS: Pramipexole Di-HCl 1 MG TAB PO SCH ×4 (08:27→20:06)
[2018-08-20] MEDS: Dronedarone HCl 400 MG TAB PO SCH ×2 (08:27→18:40)
[2018-08-20] MEDS: Apixaban 5 MG TAB PO SCH ×2 (08:27→20:06)
[2018-08-20] MEDS: traMADol HCl 50 MG TAB PO PRN ×2 (08:32→20:06)
[2018-08-20] MEDS: Bisacodyl 5 MG TAB PO PRN (10:36)
--- NOTE | 2018-08-20 13:13 | PRG ---
DATE OF SERVICE: 08/20/2018 SUBJECTIVE: The patient was moved down to the telemetry unit because he developed atrial flutter. He is currently on a diltiazem drip. He says he is breathing better than yesterday. OBJECTIVE: VITAL SIGNS: On exam, his pulse is running between 87 and 112, temperature 97.6, blood pressure 165/80, and O2 saturation 93% on 3 L. HEENT: Unremarkable. NECK: No adenopathy or JVD. CARDIAC: S1 and S2. Tachycardic, slightly irregular. ABDOMEN: Soft. EXTREMITIES: No edema. LABORATORY DATA: No labs were obtained today. ASSESSMENT: 1. Chronic obstructive pulmonary disease with exacerbation. 2. Atrial flutter. PLAN: 1. Continue antibiotics, steroids, and nebulization treatments. 2. Atrial flutter treatment per Cardiology. Job ID: [id number]
[2018-08-20] MEDS: Diltiazem 125 MG in Sodium Chloride 0.9% 100 ML IVPB SCH (13:59)
--- NOTE | 2018-08-20 18:35 | PDOC.PN ---
- Subjective Encounter Start Date: 08/20/18 Encounter Start Time: 09:00 Pt seen for followup re: acute on chronic hypoxic respiratory failure. Pt was transfered to telemetry overnight for episodes of SVT. - Objective Resuscitation Status - Order Detail: 08/18/18 01:58 Resuscitation Status Routine Resuscitation Status: DNAR: NO Resuscitation Discussed with: Patient [place] Reviewed: Yes Vital Signs & Weight: Vital Signs (12 hours) Temp Pulse Resp BP BP Pulse Ox 08/20/18 15:54 98.2 F 91 18 162/74 H 92 L 08/20/18 14:10 83 119/63 08/20/18 13:08 93 16 93 L 08/20/18 11:57 97.6 F 87 18 165/80 H 93 L 08/20/18 08:21 98.0 F 112 H 18 151/77 H 95 08/20/18 08:00 95 08/20/18 07:16 76 16 92 L 08/20/18 07:15 86 16 92 L 08/20/18 07:11 86 16 92 L 08/20/18 07:10 92 L Weight Admit Weight 138 lb Weight 138 lb 1 oz I&O: 08/19/18 08/20/18 08/21/18 06:59 06:59 06:59 Intake Total 1082 840 Output Total 360 Balance 722 840 Result Diagrams: 08/18/18 03:36 08/19/18 21:28 EKG Reviewed by me: Yes (Tele: runs of SVT overnight) Phys Exam - Physical Examination Constitutional: NAD HEENT: moist MMs Neck: supple Respiratory: clear to auscultation bilateral Cardiovascular: RRR Gastrointestinal: soft Neurological: moves all 4 limbs Psychiatric: normal affect Dx/Plan (1) Acute on chronic respiratory failure with hypoxia Code(s): J96.21 - ACUTE AND CHRONIC RESPIRATORY FAILURE WITH HYPOXIA Status: Acute Comment: Improving, secondary to COPD exacerbation (2) SVT (supraventricular tachycardia) Code(s): I47.1 - SUPRAVENTRICULAR TACHYCARDIA Status: Acute Comment: Pt having runs of SVT, especially with exertion, currently on cardizem drip. (3) COPD exacerbation Code(s): J44.1 - CHRONIC OBSTRUCTIVE PULMONARY DISEASE W (ACUTE) EXACERBATION Status: Acute Comment: Improving with oxygen, steroids, bronchodilators, ceftriaxone and levofloxacin (4) Dyslipidemia Code(s): E78.5 - HYPERLIPIDEMIA, UNSPECIFIED Status: Chronic Comment: on simvastatin (5) Hypertension Code(s): I10 - ESSENTIAL (PRIMARY) HYPERTENSION Status: Chronic Qualifiers: Comment: monitor vital signs, titrate antihypertensives as needed - Plan continue antibiotics, PT/OT, respiratory therapy, out of bed/ambulate * . administer kayexalate for hyperkalemia last night, recheck potassium level in AM. Consult Dr Fonseca in AM re: SVT Review of Systems - Review of Systems Respiratory: SOB with Excertion. negative: Cough, Shortness of Breath, Pleuritic Pain, Wheezing Cardiovascular: negative: chest pain, palpitations, orthopnea, paroxysmal nocturnal dyspnea, edema, light headedness - Medications/Allergies Allergies/Adverse Reactions: Allergies Allergy/AdvReac Type Severity Reaction Status Date / Time meperidine HCl [From Demerol] Allergy Intermediate Nausea Verified 08/18/18 14: 57 codeine Allergy Verified 08/18/18 14:57 Penicillins Allergy Rash Verified 08/18/18 14:57 sulfamethoxazole Allergy Rash Verified 08/18/18 14:57 [From Bactrim] trimethoprim [From Bactrim] Allergy Rash Verified 08/18/18 14:57 Medications: Current Medications Acetaminophen (Tylenol) 650 mg PO Q4H PRN PRN Reason: Headache/Fever/Mild Pain (1-3) Albuterol Sulfate (Proventil Hfa) 2 puff INH PRN PRN PRN Reason: SOB or Anxiety Last Admin: 08/19/18 15:21 Dose: 2 puff Albuterol/Ipratropium (Duoneb) 3 ml NEB [id number] PRN PRN Reason: SOB &/or Wheezing Last Admin: 08/18/18 16:01 Dose: 3 ml Albuterol/Ipratropium (Duoneb) 3 ml NEB TID-RT KAYLAN Last Admin: 08/20/18 13:08 Dose: 3 ml Alprazolam (Xanax) 0.25 mg PO BIDPRN PRN PRN Reason: Anxiety Last Admin: 08/19/18 16:34 Dose: 0.25 mg Apixaban (Eliquis) 5 mg PO BID KAY[facility]AN Last Admin: 08/20/18 08:27 Dose: 5 mg Arformoterol Tartrate (Brovana) 15 mcg NEB BID-RT [facility] Last Admin: 08/20/18 07:15 Dose: 15 mcg Bisacodyl (Dulcolax) 10 mg PO DAILYPRN PRN PRN Reason: CONSTIPATION Last Admin: 08/20/18 10:36 Dose: 10 mg Clonidine (Catapres) 0.1 mg PO Q4H PRN PRN Reason: SBP Greater Than 185 Last Admin: 08/18/18 16:30 Dose: 0.1 mg Dronedarone (Multaq) 200 mg PO BID-WM [facility] Last Admin: 08/20/18 08:27 Dose: 200 mg Ceftriaxone Sodium 1 gm/ (Sodium Chloride) 100 mls @ 200 mls/hr IVPB Q24HR [facility] Last Admin: 08/20/18 00:32 Dose: 100 mls Diltiazem HCl 125 mg/ Sodium (Chloride) 125 mls @ 7.5 mls/hr IVPB INF KAYLAN; Protocol Last Admin: 08/20/18 13:59 Dose: 125 mls Levofloxacin (Levaquin) 500 mg PO 1200 [facility] Last Admin: 08/20/18 12:01 Dose: 500 mg Loratadine (Claritin) 10 mg PO DAILYPRN PRN PRN Reason: Allergies Melatonin (Melatonin) 3 mg PO HS PRN PRN Reason: Insomnia Last Admin: 08/20/18 00:35 Dose: 3 mg Methylprednisolone Sodium Succinate (Solu-Medrol) 40 mg IVP Q6HR [facility] Last Admin: 08/20/18 12:01 Dose: 40 mg Mometasone Furoate/Formoterol Fumar (Dulera 200 Mcg/5 Mcg Inhaler) 2 puff INH BID-RT [facility] Last Admin: 08/20/18 07:11 Dose: 2 puff Pantoprazole Sodium (Protonix) 40 mg PO DAILY [facility] Last Admin: 08/20/18 08:26 Dose: 40 mg Pramipexole Dihydrochloride (Mirapex) 1 mg PO QID [facility] Last Admin: 08/20/18 12:01 Dose: 1 mg Sodium Chloride (Flush - Normal Saline) 10 ml IVF Q12HR [facility] Last Admin: 08/20/18 08:28 Dose: 10 ml Sodium Chloride (Flush - Normal Saline) 10 ml IVF PRN PRN PRN Reason: Saline Flush Sodium Polystyrene Sulfonate (Kayexelate Oral Susp 15 Gm/60 Ml) 30 gm PO ONE KAYLAN Stop: 08/20/18 20:00 Tamsulosin HCl (Flomax) 0.4 mg PO DAILY KAY[facility]AN Last Admin: 08/20/18 08:26 Dose: 0.4 mg Tramadol HCl (Ultram) 50 mg PO Q6H PRN PRN Reason: Pain Last Admin: 08/20/18 08:32 Dose: 50 mg
[2018-08-21] MEDS: cloNIDine 0.1 MG TAB PO PRN (03:50)
[2018-08-21 04:30] LABS: #Lymphocytes 0.3 thou/uL (1.20-3.40); #Monocytes 1.3 thou/uL (0.11-0.59); #Neutrophils 17.8 thou/uL (1.40-6.50); %Basophils 0.2 % (0.0-1.0); %Eosinophils 0.1 % (0.0-10.0); %Lymphocytes 1.5 % (21.0-51.0); %Monocytes 6.7 % (0.0-10.0); %Neutrophils 91.5 % (42.0-75.0); Hemoglobin 13.1 g/dL (14.0-18.0); Mean Corpuscular HGB CONC 31.4 g/dL (32.0-36.0); Mean Corpuscular Hemoglobin 35.5 pg (27.0-31.0); Mean Platelet Volume 7.2 fL (7.4-10.4); Platelet Count 183 thou/uL (130-400); RBC Distribution Width 13.2 % (11.5-14.5); White Blood Cell (WBC) Count 19.4 thou/uL (4.8-10.8)
[2018-08-21 04:48] LABS: Anion Gap 13 mmol/L (10-20); BUN (Urea Nitrogen) 26 mg/dL (8.4-25.7); Calc. Creatinine Clearance 55 mL/min (70-130); Carbon Dioxide 31 mmol/L (23-31); Chloride 98 mmol/L (98-107); Estimated GFR-MDRD 89; Glucose 137 mg/dL (83-110); Potassium 3.5 mmol/L (3.5-5.1); Sodium 138 mmol/L (136-145)
[2018-08-21] MEDS: methylPREDNISolone Sod Succ 40 MG VIAL IVP SCH (05:42)
[2018-08-21] MEDS: Diltiazem 125 MG in Sodium Chloride 0.9% 100 ML IVPB SCH (06:27)
[2018-08-21] MEDS: Arformoterol 15 MCG/2 ML NEB NEB SCH ×2 (08:11→18:39)
[2018-08-21] MEDS: Mometasone/Formoterol 120 PUFF INHALER INH SCH ×2 (08:12→18:42)
[2018-08-21] MEDS: traMADol HCl 50 MG TAB PO PRN ×2 (08:40→20:03)
[2018-08-21] MEDS: Tamsulosin HCl 0.4 MG CAP PO SCH (08:40)
[2018-08-21] MEDS: Pramipexole Di-HCl 1 MG TAB PO SCH ×4 (08:40→20:06)
[2018-08-21] MEDS: Apixaban 5 MG TAB PO SCH ×2 (08:40→20:05)
[2018-08-21] MEDS: Dronedarone HCl 400 MG TAB PO SCH ×2 (08:40→17:44)
[2018-08-21] MEDS ORDERED: Furosemide 20 MG/2 ML VIAL SLOW IVP SCH (09:30)
--- NOTE | 2018-08-21 09:51 | PRG ---
DATE OF SERVICE: 08/21/2018 SUBJECTIVE: This morning, he is better. He is started on Cardizem because of SVT, less cough, less wheezing, and less chest pain. Blood pressure is elevated this morning. He has probably not gotten his blood pressure medication. OBJECTIVE: VITAL SIGNS: His sats 94% on 4 L, pulse 88, and respiratory rate of 22. CHEST: Extensive rhonchi and crackle. CARDIAC: Normal S1 and S2. No mass. LABORATORY DATA: White count 19,000. H and H unremarkable. IMPRESSIONS: End-stage respiratory failure, bronchitis, bronchiectasis, and chronic obstructive pulmonary disease. Switch him to oral antibiotics or prednisone. Discontinue Cardizem and start on p.o. medication as per Cardiology. We will follow. Job ID: [id number]
[2018-08-21] MEDS ORDERED: Potassium Chloride 20 MEQ TAB PO SCH (12:00)
--- NOTE | 2018-08-21 14:59 | CON ---
DATE OF CONSULTATION: 08/21/2018 REASON FOR CONSULTATION: Supraventricular tachycardia. HISTORY OF PRESENT ILLNESS: Mr. Wilbert Banks is a very pleasant 88-year-old gentleman with a history of severe obstructive lung disease. He has been admitted to the hospital with COPD exacerbation. While he has been here, he has been noted that he has intermittent tachycardia. The patient has a past history of atrial tachycardia probably thought to be most likely left atrial tachycardia with poor candidate for interventional therapy. He has been maintained on Multaq, it helps to suppress the tachycardia. He can only tolerate 200 mg twice a day. If he takes a full dose, he gets nauseated. The patient also has a history of pulmonary embolism, I believe about 2 years ago. CURRENT MEDICATIONS: He is taking; 1. Multaq 200 mg twice a day. 2. He is started on intravenous diltiazem. 3. He is on prednisone. 4. Inhaled bronchodilators. 5. Antibiotics. 6. Tamsulosin. REVIEW OF SYSTEMS: CONSTITUTIONAL: Positive for weakness and fatigue. VISION: No changes. HEARING: No changes. PULMONARY: Positive for shortness of breath. CARDIAC: No chest pain. GASTROINTESTINAL: No nausea, vomiting, or diarrhea. SKIN: No rashes. NEUROLOGIC: No unilateral weakness or numbness. PSYCHIATRIC: No unusual depression or anxiety. PHYSICAL EXAMINATION: GENERAL: On examination, this is a frail-appearing elderly gentleman, who is very pleasant. VITAL SIGNS: He appears to have a very high blood pressure at size of 205/98. His weight is 132 pounds. HEENT: Eyes; sclerae are nonicteric. Mouth, mucous membranes moist. NECK: Supple. No lymphadenopathy. LUNGS: Some basilar rhonchi nor any wheezing. CARDIAC: Normal S1. Normal S2. ABDOMEN: Soft and nontender. EXTREMITIES: No clubbing or cyanosis. He has no edema. SKIN: Warm and dry. PSYCHIATRIC: Mood and affect normal. NEUROLOGIC: Grossly normal. LABORATORY DATA: Potassium was 5.4 two days ago, now it is 3.5. IMAGING DATA: The EKG does revealed mostly sinus tachycardia with some episodes of supraventricular tachycardia, thought to be multifocal atrial tachycardia at times. ASSESSMENT: 1. Severe chronic obstructive pulmonary disease. 2. Atrial tachycardia probably mostly left-sided, thought to be a poor candidate for any type of interventional therapy. 3. Increased BNP, probably has some degree of diastolic dysfunction. PLAN: 1. We will change from IV diltiazem to oral. 2. Continue Multaq. 3. One dose of Lasix. 4. As far as looking at the anticoagulation, I do not know that atrial fibrillation has ever been documented. He has had a history of pulmonary embolism in the past. Looking at the notes, it looks like there is a pulmonary embolism in February 2016. 5. He has undergone electrophysiologic evaluation with an EP study showing left atrial tachycardia in 2017. 6. Underwent procedure by Dr. Asif Mayo in 2016. 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 7. Could consider reducing Eliquis dose to 2.5 mg twice a day more of a preventative dose with history of pulmonary emboli. The patient is on the borderline for reduced dose of Eliquis with age 88 and a weight of 138, just above the cutoff of 60 kg. Job ID: [id number]
--- NOTE | 2018-08-21 17:05 | EKG ---
Test Reason : Blood Pressure : / mmHG Vent. Rate : 103 BPM Atrial Rate : 103 BPM P-R Int : 188 ms QRS Dur : 088 ms QT Int : 344 ms P-R-T Axes : 039 039 033 degrees QTc Int : 450 ms Sinus tachycardia with Premature supraventricular complexes Cannot rule out Anterior infarct (cited on or before 03-APR-2018) Abnormal ECG Confirmed by JASBIR HANSEN ([id number]) on 08/21/2018 5:05:04 PM Referred By: Confirmed By:JASBIR HANSEN
--- NOTE | 2018-08-21 17:09 | EKG ---
Test Reason : STAT SVT Blood Pressure : / mmHG Vent. Rate : 154 BPM Atrial Rate : 170 BPM P-R Int : 000 ms QRS Dur : 088 ms QT Int : 298 ms P-R-T Axes : 000 065 062 degrees QTc Int : 477 ms Multifocal atrial tachycardia Premature ventricular and fusion complexes Abnormal ECG Confirmed by JASBIR HANSEN ([id number]) on 08/21/2018 5:09:22 PM Referred By: CAPRI Confirmed By:JASBIR HANSEN
--- NOTE | 2018-08-21 18:30 | PDOC.PN ---
- Subjective Encounter Start Date: 08/21/18 Encounter Start Time: 09:00 Pt seen for followup re: hypoxic respiratory failure. Feels much better today. - Objective Resuscitation Status - Order Detail: 08/18/18 01:58 Resuscitation Status Routine Resuscitation Status: DNAR: NO Resuscitation Discussed with: Patient MAR Reviewed: Yes Vital Signs & Weight: Vital Signs (12 hours) Temp Pulse Resp BP Pulse Ox 08/21/18 15:56 98.2 F 103 H 18 166/72 H 93 L 08/21/18 13:35 117 H 20 08/21/18 12:17 98.0 F 107 H 18 159/77 H 94 L 08/21/18 08:44 98.2 F 94 16 167/79 H 97 08/21/18 08:12 95 08/21/18 08:10 83 16 95 08/21/18 08:00 97 Weight Admit Weight 138 lb Weight 138 lb 1 oz I&O: 08/20/18 08/21/18 08/22/18 06:59 06:59 06:59 Intake Total 840 Balance 840 Result Diagrams: 08/21/18 04:03 08/21/18 04:03 EKG Reviewed by me: Yes (Tele: NSR) Phys Exam - Physical Examination HEENT: moist MMs Neck: no JVD Respiratory: clear to auscultation bilateral Cardiovascular: RRR Gastrointestinal: soft Neurological: moves all 4 limbs Psychiatric: normal affect Dx/Plan (1) Acute on chronic respiratory failure with hypoxia Code(s): J96.21 - ACUTE AND CHRONIC RESPIRATORY FAILURE WITH HYPOXIA Status: Acute Comment: signioficantly improved, secondary to COPD exacerbation (2) SVT (supraventricular tachycardia) Code(s): I47.1 - SUPRAVENTRICULAR TACHYCARDIA Status: Acute Comment: pt transitioned to oral CCB (3) COPD exacerbation Code(s): J44.1 - CHRONIC OBSTRUCTIVE PULMONARY DISEASE W (ACUTE) EXACERBATION Status: Acute Comment: Improving, continue oxygen, oral steroids, bronchodilators, and oral levofloxacin (4) Dyslipidemia Code(s): E78.5 - HYPERLIPIDEMIA, UNSPECIFIED Status: Chronic Comment: on simvastatin (5) Hypertension Code(s): I10 - ESSENTIAL (PRIMARY) HYPERTENSION Status: Chronic Qualifiers: Comment: monitor vital signs, titrate antihypertensives as needed - Plan * . Review of Systems - Review of Systems Respiratory: SOB with Excertion. negative: Cough, Shortness of Breath, Pleuritic Pain, Wheezing Cardiovascular: negative: chest pain, palpitations, orthopnea, paroxysmal nocturnal dyspnea, edema, light headedness - Medications/Allergies Allergies/Adverse Reactions: Allergies Allergy/AdvReac Type Severity Reaction Status Date / Time meperidine HCl [From Demerol] Allergy Intermediate Nausea Verified 08/18/18 14: 57 codeine Allergy Verified 08/18/18 14:57 Penicillins Allergy Rash Verified 08/18/18 14:57 sulfamethoxazole Allergy Rash Verified 08/18/18 14:57 [From Bactrim] trimethoprim [From Bactrim] Allergy Rash Verified 08/18/18 14:57 Medications: Current Medications Acetaminophen (Tylenol) 650 mg PO Q4H PRN PRN Reason: Headache/Fever/Mild Pain (1-3) Albuterol Sulfate (Proventil Hfa) 2 puff INH PRN PRN PRN Reason: SOB or Anxiety Last Admin: 08/19/18 15:21 Dose: 2 puff Albuterol/Ipratropium (Duoneb) 3 ml NEB [id number] PRN PRN Reason: SOB &/or Wheezing Last Admin: 08/21/18 01:25 Dose: 3 ml Albuterol/Ipratropium (Duoneb) 3 ml NEB TID-RT [facility] Last Admin: 08/21/18 13:35 Dose: 3 ml Alprazolam (Xanax) 0.25 mg PO BIDPRN PRN PRN Reason: Anxiety Last Admin: 08/19/18 16:34 Dose: 0.25 mg Apixaban (Eliquis) 5 mg PO BID [facility] Last Admin: 08/21/18 08:40 Dose: 5 mg Arformoterol Tartrate (Brovana) 15 mcg NEB BID-RT [facility] Last Admin: 08/21/18 08:11 Dose: 15 mcg Bisacodyl (Dulcolax) 10 mg PO DAILYPRN PRN PRN Reason: CONSTIPATION Last Admin: 08/20/18 10:36 Dose: 10 mg Clonidine (Catapres) 0.1 mg PO Q4H PRN PRN Reason: SBP Greater Than 185 Last Admin: 08/21/18 03:50 Dose: 0.1 mg Diltiazem HCl (Cardizem Cd) 120 mg PO DAILY [facility] Dronedarone (Multaq) 200 mg PO BID-WM [facility] Last Admin: 08/21/18 17:44 Dose: 200 mg Levofloxacin (Levaquin) 500 mg PO 1200 [facility] Last Admin: 08/21/18 12:22 Dose: 500 mg Loratadine (Claritin) 10 mg PO DAILYPRN PRN PRN Reason: Allergies Last Admin: 08/20/18 23:55 Dose: 10 mg Melatonin (Melatonin) 3 mg PO HS PRN PRN Reason: Insomnia Last Admin: 08/20/18 23:17 Dose: 3 mg Mometasone Furoate/Formoterol Fumar (Dulera 200 Mcg/5 Mcg Inhaler) 2 puff INH BID-RT [facility] Last Admin: 08/21/18 08:12 Dose: 2 puff Pantoprazole Sodium (Protonix) 40 mg PO DAILY [facility] Last Admin: 08/21/18 08:40 Dose: 40 mg Pramipexole Dihydrochloride (Mirapex) 1 mg PO QID [facility] Last Admin: 08/21/18 17:44 Dose: 1 mg Prednisone (Prednisone) 40 mg PO QAM-WM [facility] Sodium Chloride (Flush - Normal Saline) 10 ml IVF Q12HR [facility] Last Admin: 08/21/18 08:43 Dose: 10 ml Sodium Chloride (Flush - Normal Saline) 10 ml IVF PRN PRN PRN Reason: Saline Flush Tamsulosin HCl (Flomax) 0.8 mg PO HS [facility] Tramadol HCl (Ultram) 50 mg PO Q6H PRN PRN Reason: Pain Last Admin: 08/21/18 08:40 Dose: 50 mg
[2018-08-21] MEDS: Melatonin 3 MG TAB PO PRN (20:03)
[2018-08-21] MEDS: Gaviscon Tablet PO PRN (20:06)
[2018-08-21] MEDS ORDERED: Tamsulosin HCl 0.4 MG CAP PO SCH (21:00)
[2018-08-22 05:01] LABS: Band 2 % (5-11); Hemoglobin 12.7 g/dL (14.0-18.0); Hypochromia SLIGHT = 6-15 cells (100X) (0-5/hpf); MDiff Complete? YES; Macrocytosis SLIGHT = 6-15 cells (100X) (0-5/hpf); Mean Corpuscular HGB CONC 31.1 g/dL (32.0-36.0); Mean Corpuscular Hemoglobin 35.2 pg (27.0-31.0); Mean Platelet Volume 7.6 fL (7.4-10.4); Monocytes 5 % (0-10); Neutrophil 93 % (42-75); Platelet Count 158 thou/uL (130-400); Platelet Morphology Comment Appears Adequate; RBC Distribution Width 13.3 % (11.5-14.5); Red Blood Cell (RBC) Count 3.61 mill/uL (4.70-6.10); White Blood Cell (WBC) Count 24.4 thou/uL (4.8-10.8)
[2018-08-22 05:03] LABS: Anion Gap 12 mmol/L (10-20); BUN (Urea Nitrogen) 28 mg/dL (8.4-25.7); Calc. Creatinine Clearance 58 mL/min (70-130); Calcium 8.7 mg/dL (7.8-10.44); Carbon Dioxide 29 mmol/L (23-31); Chloride 100 mmol/L (98-107); Estimated GFR-MDRD Greater than 90; Glucose 142 mg/dL (83-110); Potassium 3.3 mmol/L (3.5-5.1); Sodium 138 mmol/L (136-145)
[2018-08-22] MEDS: Mometasone/Formoterol 120 PUFF INHALER INH SCH ×2 (07:14→18:30)
[2018-08-22] MEDS: Arformoterol 15 MCG/2 ML NEB NEB SCH ×2 (07:14→18:30)
[2018-08-22] MEDS: Apixaban 5 MG TAB PO SCH ×2 (08:02→21:05)
[2018-08-22] MEDS: Pramipexole Di-HCl 1 MG TAB PO SCH ×4 (08:02→21:05)
[2018-08-22] MEDS: Dronedarone HCl 400 MG TAB PO SCH ×2 (08:03→16:19)
[2018-08-22] MEDS: predniSONE 20 MG TAB PO SCH (08:03)
[2018-08-22] MEDS: traMADol HCl 50 MG TAB PO PRN ×3 (08:15→21:05)
[2018-08-22] MEDS ORDERED: Potassium Chloride 20 MEQ TAB PO SCH (09:15)
--- NOTE | 2018-08-22 13:02 | PRG ---
DATE OF SERVICE: 08/22/2018 SUBJECTIVE: Wilbert Banks is better this morning. OBJECTIVE: VITAL SIGNS: Pulse of 107, atrial fibrillation; temperature 97; saturations 94% on 3 L, blood pressure 182/81. CHEST: Decreased breath sounds. No wheezing. Extensive rhonchi and crackles. CARDIAC: SVT. ABDOMEN: Soft. IMPRESSION: 1. Chronic obstructive pulmonary disease, bronchiectasis, bronchitis exacerbation. 2. Recurrent supraventricular tachycardia. PLAN: He is on Cardizem and Multaq, can be discharged home any time. Follow up in the office. Job ID: [id number]
--- NOTE | 2018-08-22 14:01 | PRG ---
DATE OF SERVICE: 08/22/2018 SUBJECTIVE: Mr. Banks is having some significant breathing troubles intermittently, but seems to be better right this minute. OBJECTIVE: VITAL SIGNS: His blood pressure 126/96 now after some lisinopril. Pulse is 100. LUNGS: Decreased breath sounds. CARDIAC: Tachycardic for rest. ABDOMEN: Soft, nontender. ASSESSMENT: 1. Paroxysmal supraventricular tachycardia, stable. 2. History of pulmonary emboli in the past. 3. Severe chronic obstructive pulmonary disease. PLAN: He is on Eliquis twice a day 5 mg. We could reduce the dose to 2.5. He weighs 63 kg. He is really right on the borderline. He is 88 years of age. I do not see documentation of atrial fibrillation. The main would be to try to prevent recurrent pulmonary emboli. It would be okay to reduce to 2.5 mg twice a day Eliquis. 1. Cardizem CD 120 mg a day. 2. Multaq, he can only tolerate 200 mg twice a day. Job ID: [id number] MTDD
[2018-08-22] MEDS: cloNIDine 0.1 MG TAB PO PRN (16:25)
--- NOTE | 2018-08-22 18:04 | PDOC.PN ---
- Subjective Encounter Start Date: 08/22/18 Encounter Start Time: 09:20 Pt seen for followup re: acute on chronic hypoxic resp failure. Says he feels better. - Objective Resuscitation Status - Order Detail: 08/18/18 01:58 Resuscitation Status Routine Resuscitation Status: DNAR: NO Resuscitation Discussed with: Patient [place] Reviewed: Yes Vital Signs & Weight: Vital Signs (12 hours) Temp Pulse Resp BP BP Pulse Ox 08/22/18 17:40 92 20 137/66 08/22/18 16:25 188/91 H 08/22/18 16:20 97.6 F 99 20 188/91 H 92 L 08/22/18 14:00 77 16 97 08/22/18 11:17 97.4 F L 113 H 20 126/96 H 93 L 08/22/18 09:50 107 H 20 182/81 H 08/22/18 08:03 98 08/22/18 08:00 97.6 F 98 20 200/96 H 94 L 08/22/18 07:15 96 08/22/18 07:13 99 18 96 Weight Admit Weight 138 lb Weight 138 lb 1 oz I&O: 08/21/18 08/22/18 08/23/18 06:59 06:59 06:59 Intake Total 1050 1040 Output Total 1050 Balance 0 1040 Result Diagrams: 08/22/18 04:18 08/22/18 04:18 EKG Reviewed by me: Yes (Tele: NSR) Phys Exam - Physical Examination Constitutional: NAD HEENT: moist MMs Neck: supple Respiratory: clear to auscultation bilateral Cardiovascular: RRR Gastrointestinal: soft Neurological: moves all 4 limbs Psychiatric: normal affect Dx/Plan (1) Acute on chronic respiratory failure with hypoxia Code(s): J96.21 - ACUTE AND CHRONIC RESPIRATORY FAILURE WITH HYPOXIA Status: Acute Comment: significantly improved (2) SVT (supraventricular tachycardia) Code(s): I47.1 - SUPRAVENTRICULAR TACHYCARDIA Status: Acute Comment: continue Cardizem CD (3) COPD exacerbation Code(s): J44.1 - CHRONIC OBSTRUCTIVE PULMONARY DISEASE W (ACUTE) EXACERBATION Status: Acute Comment: Improving, on oxygen, oral steroids, bronchodilators, and oral levofloxacin (4) Dyslipidemia Code(s): E78.5 - HYPERLIPIDEMIA, UNSPECIFIED Status: Chronic Comment: continue simvastatin (5) Hypertension Code(s): I10 - ESSENTIAL (PRIMARY) HYPERTENSION Status: Chronic Qualifiers: Comment: Pt started on lisinopril - Plan continue antibiotics, PT/OT, respiratory therapy, out of bed/ambulate * . Eliquis dose decreased today. Lisinopril added (for better better blood pressure control). Review of Systems - Review of Systems Constitutional: negative: fever, chills, sweats, weakness, malaise Respiratory: SOB with Excertion Cardiovascular: negative: chest pain, palpitations, orthopnea, paroxysmal nocturnal dyspnea, edema, light headedness - Medications/Allergies Allergies/Adverse Reactions: Allergies Allergy/AdvReac Type Severity Reaction Status Date / Time meperidine HCl [From Demerol] Allergy Intermediate Nausea Verified 08/18/18 14: 57 codeine Allergy Verified 08/18/18 14:57 Penicillins Allergy Rash Verified 08/18/18 14:57 sulfamethoxazole Allergy Rash Verified 08/18/18 14:57 [From Bactrim] trimethoprim [From Bactrim] Allergy Rash Verified 08/18/18 14:57 Medications: Current Medications Acetaminophen (Tylenol) 650 mg PO Q4H PRN PRN Reason: Headache/Fever/Mild Pain (1-3) Al Hydroxide/Mg Trisilicate (Gaviscon Chew) 1 tab PO PC PRN PRN Reason: Gas Pain Last Admin: 08/21/18 20:06 Dose: 1 tab Albuterol Sulfate (Proventil Hfa) 2 puff INH PRN PRN PRN Reason: SOB or Anxiety Last Admin: 08/19/18 15:21 Dose: 2 puff Albuterol/Ipratropium (Duoneb) 3 ml NEB [id number] PRN PRN Reason: SOB &/or Wheezing Last Admin: 08/21/18 01:25 Dose: 3 ml Albuterol/Ipratropium (Duoneb) 3 ml NEB TID-RT [facility] Last Admin: 08/22/18 14:00 Dose: 3 ml Alprazolam (Xanax) 0.25 mg PO BIDPRN PRN PRN Reason: Anxiety Last Admin: 08/19/18 16:34 Dose: 0.25 mg Apixaban (Eliquis) 5 mg PO BID [facility] Last Admin: 08/22/18 08:02 Dose: 5 mg Arformoterol Tartrate (Brovana) 15 mcg NEB BID-RT [facility] Last Admin: 08/22/18 07:14 Dose: 15 mcg Bisacodyl (Dulcolax) 10 mg PO DAILYPRN PRN PRN Reason: CONSTIPATION Last Admin: 08/20/18 10:36 Dose: 10 mg Clonidine (Catapres) 0.1 mg PO Q4H PRN PRN Reason: SBP Greater Than 185 Last Admin: 08/22/18 16:25 Dose: 0.1 mg Diltiazem HCl (Cardizem Cd) 120 mg PO DAILY [facility] Last Admin: 08/22/18 08:03 Dose: 120 mg Dronedarone (Multaq) 200 mg PO BID-WM [facility] Last Admin: 08/22/18 16:19 Dose: 200 mg Levofloxacin (Levaquin) 500 mg PO 1200 [facility] Last Admin: 08/22/18 11:52 Dose: 500 mg Lisinopril (Zestril) 10 mg PO DAILY [facility] Loratadine (Claritin) 10 mg PO DAILYPRN PRN PRN Reason: Allergies Last Admin: 08/20/18 23:55 Dose: 10 mg Melatonin (Melatonin) 3 mg PO HS PRN PRN Reason: Insomnia Last Admin: 08/21/18 20:03 Dose: 3 mg Mometasone Furoate/Formoterol Fumar (Dulera 200 Mcg/5 Mcg Inhaler) 2 puff INH BID-RT [facility] Last Admin: 08/22/18 07:14 Dose: 2 puff Pramipexole Dihydrochloride (Mirapex) 1 mg PO QID [facility] Last Admin: 08/22/18 16:20 Dose: 1 mg Prednisone (Prednisone) 40 mg PO QAM-WM [facility] Last Admin: 08/22/18 08:03 Dose: 40 mg Sodium Chloride (Flush - Normal Saline) 10 ml IVF Q12HR [facility] Last Admin: 08/22/18 08:04 Dose: 10 ml Sodium Chloride (Flush - Normal Saline) 10 ml IVF PRN PRN PRN Reason: Saline Flush Tamsulosin HCl (Flomax) 0.8 mg PO HS [facility] Tramadol HCl (Ultram) 50 mg PO Q6H PRN PRN Reason: Pain Last Admin: 08/22/18 16:19 Dose: 50 mg
[2018-08-22] MEDS: Tamsulosin HCl 0.4 MG CAP PO SCH (21:05)
[2018-08-23 05:03] LABS: Anion Gap 10 mmol/L (10-20); BUN (Urea Nitrogen) 22 mg/dL (8.4-25.7); Calc. Creatinine Clearance 64 mL/min (70-130); Calcium 8.5 mg/dL (7.8-10.44); Carbon Dioxide 32 mmol/L (23-31); Chloride 97 mmol/L (98-107); Estimated GFR-MDRD Greater than 90; Glucose 87 mg/dL (83-110); Sodium 135 mmol/L (136-145)
[2018-08-23 05:19] LABS: Band 11 % (5-11); Hemoglobin 12.5 g/dL (14.0-18.0); Lymphocytes 1 % (21-51); MDiff Complete? YES; Mean Corpuscular Hemoglobin 35.5 pg (27.0-31.0); Mean Platelet Volume 7.6 fL (7.4-10.4); Metamyelocyte 1 % (0-0); Monocytes 4 % (0-10); Neutrophil 83 % (42-75); Platelet Count 133 thou/uL (130-400); Platelet Morphology Comment Appears Adequate; RBC Distribution Width 13.2 % (11.5-14.5); Red Blood Cell (RBC) Count 3.53 mill/uL (4.70-6.10); White Blood Cell (WBC) Count 23.1 thou/uL (4.8-10.8)
[2018-08-23] MEDS: Apixaban 5 MG TAB PO SCH ×2 (08:19→19:42)
[2018-08-23] MEDS: Lisinopril 10 MG TAB PO SCH (08:19)
[2018-08-23] MEDS: Dronedarone HCl 400 MG TAB PO SCH ×2 (08:19→16:48)
[2018-08-23] MEDS: Pramipexole Di-HCl 1 MG TAB PO SCH ×4 (08:19→19:42)
[2018-08-23] MEDS: traMADol HCl 50 MG TAB PO PRN ×3 (08:20→19:43)
[2018-08-23] MEDS: predniSONE 20 MG TAB PO SCH (08:22)
[2018-08-23] MEDS: Arformoterol 15 MCG/2 ML NEB NEB SCH ×2 (08:58→18:42)
[2018-08-23] MEDS: Gaviscon Tablet PO PRN ×2 (09:00→19:24)
[2018-08-23] MEDS: Mometasone/Formoterol 120 PUFF INHALER INH SCH ×2 (09:00→18:43)
--- NOTE | 2018-08-23 09:43 | PRG ---
DATE OF SERVICE: 08/23/2018 SUBJECTIVE: This morning, he is better. He is nauseated after eating some breakfast, but his breathing is better. OBJECTIVE: VITAL SIGNS: Saturations are 92% on 3 L, respiratory rate 18, temperature _98.4 pulse 96, and blood pressure 185/87. CHEST: Rhonchi and crackles. CARDIAC: Normal S1 and S2. No gallops. ABDOMEN: No masses. IMPRESSION: 1. Leukocytosis secondary to chronic bronchitis and bronchiectasis. 2. Supraventricular tachycardia. Continue prednisone, Levaquin, and supportive care. Disposition as per Cardiology. Job ID: [id number] MTDD
--- NOTE | 2018-08-23 10:42 | PDOC.PN ---
- Subjective Encounter Start Date: 08/23/18 Encounter Start Time: 10:39 Has abdominal discomfort this morning. 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 Has had a transvascular procedure in the past to address this (radial approach per patient). Says he continues to have some intermittent intestinal angina if he eats too much. Feels like it might be improving a little. He thinks Gaviscon helped a little. Also feels like he is a little more SOB this morning. Says he sent his son home because he was exerting too much energy to talk to him and feels like he has not caught up on his breathing yet. Also reports thrush. Has had it before. - Objective Resuscitation Status - Order Detail: 08/18/18 01:58 Resuscitation Status Routine Resuscitation Status: DNAR: NO Resuscitation Discussed with: Patient Vital Signs & Weight: Vital Signs (12 hours) Temp Pulse Resp BP BP Pulse Ox 08/23/18 08:22 96 08/23/18 08:16 98.1 F 96 18 185/87 H 92 L 08/23/18 08:00 92 L 08/23/18 03:56 99.8 F H 74 18 147/80 H 97 Weight Admit Weight 138 lb Weight 136 lb 0.403 oz I&O: 08/22/18 08/23/18 08/24/18 06:59 06:59 06:59 Intake Total 1050 1640 480 Output Total 1050 550 220 Balance 0 1090 260 Result Diagrams: 08/23/18 04:19 08/23/18 04:19 Phys Exam - Physical Examination Constitutional: NAD A and O. Respiratory: no wheezing, no rales, no rhonchi Diminished breath sounds. Tachycardia with intermittent ectopy. Gastrointestinal: soft, no distention, positive bowel sounds Minimal TTP central upper abd. Musculoskeletal: no edema Neurological: non-focal Psychiatric: normal affect, A&O x 3 Skin: normal turgor Dx/Plan (1) Acute on chronic respiratory failure with hypoxia Code(s): J96.21 - ACUTE AND CHRONIC RESPIRATORY FAILURE WITH HYPOXIA Status: Acute Comment: significantly improved (2) COPD exacerbation Code(s): J44.1 - CHRONIC OBSTRUCTIVE PULMONARY DISEASE W (ACUTE) EXACERBATION Status: Acute Comment: Improving, on oxygen, oral steroids, bronchodilators, and oral levofloxacin (3) SVT (supraventricular tachycardia) Code(s): I47.1 - SUPRAVENTRICULAR TACHYCARDIA Status: Acute Comment: continue Cardizem CD (4) Anemia Code(s): D64.9 - ANEMIA, UNSPECIFIED Status: Chronic (5) Bronchiectasis Code(s): J47.9 - BRONCHIECTASIS, UNCOMPLICATED Status: Chronic (6) Dyslipidemia Code(s): E78.5 - HYPERLIPIDEMIA, UNSPECIFIED Status: Chronic Comment: continue simvastatin (7) History of deep venous thrombosis or pulmonary embolus Code(s): OAP6898 - Status: Chronic (8) Hypertension Code(s): I10 - ESSENTIAL (PRIMARY) HYPERTENSION Status: Chronic Qualifiers: Comment: Pt started on lisinopril (9) Thrush Code(s): B37.0 - CANDIDAL STOMATITIS Status: Acute (10) Abdominal pain Code(s): R10.9 - UNSPECIFIED ABDOMINAL PAIN Status: Acute - Plan * Thrush - Diflucan SS. * Abd pain - Possibly intestinal angina exacerbated by the tachycardia. * Had PPI discontinued yesterday. Looks like it was DC'd by Dr. Fonseca. Will see if there was a specific reason. * Seems to be getting a little better. * Risk for PUD with steroids. Will ensure some form of GI protection. * SVT - Messaged Dr. Fonseca for additional thoughts. On Multaq at the dose he can tolerate and PO Diltiazem. May give additional Dilt. * COPD - Continue Steroids, nebs, oxygen. Pulm following. *
[2018-08-23] MEDS ORDERED: Famotidine 20 MG TAB PO SCH ×3 (11:00→21:00)
[2018-08-23] MEDS: Nystatin 500,000 UNITS/5 ML UDCUP SSW SCH ×3 (11:16→19:41)
--- NOTE | 2018-08-23 13:55 | PRG ---
DATE OF SERVICE: 08/23/2018 SUBJECTIVE: Mr. Banks is having some recurrent tachycardia. This is despite diltiazem CD 120 mg a day. OBJECTIVE: VITAL SIGNS: Blood pressure 152/76; pulse 100 to 110, but sometimes he is in the SVT rate to 150. LUNGS: Clear. CARDIAC: Normal S1, normal S2. ABDOMEN: Soft, nontender. ASSESSMENT: 1. Chronic obstructive pulmonary disease. 2. Recurrent atrial tachycardias. 3. History of constipation. PLAN: 1. He is on diltiazem. The dose is increased. 2. If the symptoms persist, consideration for pacemaker insertion and AV junction ablation. The patient is not sure if he is interested in doing this. We will recheck tomorrow. Job ID: [id number]
[2018-08-23] MEDS: Tamsulosin HCl 0.4 MG CAP PO SCH (19:42)
[2018-08-23] MEDS: ALPRAZolam 0.25 MG TAB PO PRN (19:44)
[2018-08-24] MEDS: Arformoterol 15 MCG/2 ML NEB NEB SCH ×2 (06:32→19:17)
[2018-08-24] MEDS: Mometasone/Formoterol 120 PUFF INHALER INH SCH ×2 (06:49→19:18)
--- NOTE | 2018-08-24 09:00 | PRG ---
DATE OF SERVICE: 08/24/2018 SUBJECTIVE: This morning, he is better. His abdominal pain is improved. OBJECTIVE: VITAL SIGNS: His saturations are 96% on 3 L, blood pressure 102/57, temperature 97, pulse 90, respiratory rate 20. CHEST: No shortness of breath, no crackles, no wheezing. CARDIAC: Atrial fibrillation. ABDOMEN: Soft. IMPRESSION: 1. Chronic bronchitis, bronchiectasis. 2. Recurrent supraventricular tachycardia. 3. Severe deconditioning. 4. Pulmonary watkins, he is stable enough to be discharged home,_when ok with Cardiology. All cultures are so far negative. Job ID: [id number] MTDD
[2018-08-24] MEDS: Dronedarone HCl 400 MG TAB PO SCH ×2 (09:01→17:41)
[2018-08-24] MEDS: predniSONE 20 MG TAB PO SCH (09:01)
[2018-08-24] MEDS: Nystatin 500,000 UNITS/5 ML UDCUP SSW SCH ×4 (09:02→20:50)
[2018-08-24] MEDS: Apixaban 5 MG TAB PO SCH ×2 (09:02→20:51)
[2018-08-24] MEDS: Lisinopril 10 MG TAB PO SCH (09:02)
[2018-08-24] MEDS: Pramipexole Di-HCl 1 MG TAB PO SCH ×4 (09:02→20:51)
--- NOTE | 2018-08-24 09:35 | PRG ---
DATE OF SERVICE: 08/24/2018 SUBJECTIVE: Mr. Banks has some abdominal pain, but his heart rate seems controlled. OBJECTIVE: VITAL SIGNS: Blood pressure 132/58, pulse 88 and regular. LUNGS: Clear. CARDIAC: Normal S1, normal S2. ABDOMEN: Soft and nontender. EXTREMITIES: No edema. ASSESSMENT: 1. Supraventricular tachycardia, adequately controlled. 2. Severe chronic obstructive pulmonary disease. PLAN: Okay with me to go home. He is taking Multaq 200 mg twice a day, Cardizem CD 180 mg a day. Job ID: [id number]
[2018-08-24] MEDS: traMADol HCl 50 MG TAB PO PRN (10:29)
[2018-08-24 11:40] VITALS: BMI 20.5
[2018-08-24] MEDS ORDERED: Morphine 2 MG/ML SYRINGE SLOW IVP SCH (12:15)
--- NOTE | 2018-08-24 13:23 | PDOC.PN ---
- Subjective Encounter Start Date: 08/24/18 Encounter Start Time: 11:45 Has worse abd pain today than he did yesterday. Started again after eating breakfast. Requesting something stronger for pain. His daughter was in the room and said they were interested in more aggressive pain management and would be interested in looking into Hospice. I discussed with the patient and he concurred. - Objective Resuscitation Status - Order Detail: 08/18/18 01:58 Resuscitation Status Routine Resuscitation Status: DNAR: NO Resuscitation Discussed with: Patient Vital Signs & Weight: Vital Signs (12 hours) Temp Pulse Resp BP BP Pulse Ox 08/24/18 08:47 97.9 F 88 18 132/58 L 94 L 08/24/18 07:50 93 L 08/24/18 06:49 99 20 08/24/18 06:32 99 20 08/24/18 03:20 97.3 F L 82 18 115/57 L 96 Weight Admit Weight 138 lb 1 oz Weight 135 lb 6.4 oz I&O: 08/23/18 08/24/18 08/25/18 06:59 06:59 06:59 Intake Total 1640 1500 Output Total 550 420 Balance 1090 1080 Result Diagrams: 08/23/18 04:19 08/23/18 04:19 Phys Exam - Physical Examination Clearly uncomfortable. Holding abdomen. Respiratory: no wheezing, no rales, no rhonchi Diminished Cardiovascular: RRR, no significant murmur Gastrointestinal: soft, non-tender TTP in mid-upper abdomen Musculoskeletal: no edema Dx/Plan (1) Acute on chronic respiratory failure with hypoxia Code(s): J96.21 - ACUTE AND CHRONIC RESPIRATORY FAILURE WITH HYPOXIA Status: Acute Comment: significantly improved (2) COPD exacerbation Code(s): J44.1 - CHRONIC OBSTRUCTIVE PULMONARY DISEASE W (ACUTE) EXACERBATION Status: Acute Comment: Improving, on oxygen, oral steroids, bronchodilators, and oral levofloxacin (3) SVT (supraventricular tachycardia) Code(s): I47.1 - SUPRAVENTRICULAR TACHYCARDIA Status: Acute Comment: continue Cardizem CD (4) Anemia Code(s): D64.9 - ANEMIA, UNSPECIFIED Status: Chronic (5) Bronchiectasis Code(s): J47.9 - BRONCHIECTASIS, UNCOMPLICATED Status: Chronic (6) Dyslipidemia Code(s): E78.5 - HYPERLIPIDEMIA, UNSPECIFIED Status: Chronic Comment: continue simvastatin (7) History of deep venous thrombosis or pulmonary embolus Code(s): FUI6454 - Status: Chronic (8) Hypertension Code(s): I10 - ESSENTIAL (PRIMARY) HYPERTENSION Status: Chronic Qualifiers: Comment: Pt started on lisinopril (9) Thrush Code(s): B37.0 - CANDIDAL STOMATITIS Status: Acute (10) Abdominal pain Code(s): R10.9 - UNSPECIFIED ABDOMINAL PAIN Status: Acute - Plan * Abdominal pain appears to be related to intestinal angina consistent with his prior symptoms related to this. * I will add IV MSO4 for better pain management. * Discussed with CM. Will get hospice consult. * Discussed with Dr. Lubin, his GI. He was going to consult on the patient, but that will likely not be necessary if pursuing hospice and palliative care.
[2018-08-24] MEDS: Morphine 2 MG/ML SYRINGE SLOW IVP PRN ×3 (14:54→22:52)
[2018-08-24] MEDS: Tamsulosin HCl 0.4 MG CAP PO SCH (20:51)
--- NOTE | 2018-08-24 22:42 | CON ---
DATE OF CONSULTATION: 08/24/2018 CHIEF COMPLAINT: Abdominal pain. HISTORY OF PRESENT ILLNESS: Mr. Banks is an 88-year-old man who was admitted a week ago with COPD exacerbation. He was treated with steroids and antibiotics and his breathing is improved. He is closer back to his baseline now. He also had a tachyarrhythmia during the hospitalization and his heart rates back controlled again. For the last 2 weeks, he has been having severe epigastric to periumbilical aching abdominal pain that occurs starting about 20 minutes after eating. He has been avoiding meals because of this pain and has lost weight associated with that. The pain is similar to the pain that he had prior to angioplasty of his mesenteric artery. He was having chronic similar abdominal pain and I believe around February 2017, he had balloon angioplasty to one of the abdominal vessels, whether it is the superior mesenteric artery or celiac axis I do not know, but he was told that he could not be stented, he can only receive balloon angioplasty. He had marked improvement in his symptoms after the angioplasty and has done well up until 2 weeks ago. He was told by the physician who performed the procedure that he could go back and get the balloon procedure done again as he needed to. Currently, he is considering transition to hospice care due to his chronic lung disease and recurrent pain and overall decline. PAST MEDICAL HISTORY: Mesenteric ischemia, status post angioplasty, stroke, prostate cancer, gastroesophageal reflux disease, hypertension, hyperlipidemia, COPD with bronchiectasis, SVT, osteoarthritis. PAST SURGICAL HISTORY: Right lung lobectomy, appendectomy, hernia repair, cataract surgery, carpal tunnel release, EGD with esophageal dilation, angioplasty of the mesenteric vessels, carotid endarterectomy. FAMILY HISTORY: Negative for GI malignancies. SOCIAL HISTORY: No alcohol, tobacco, or drugs. ALLERGIES: MEPERIDINE, CODEINE, PENICILLIN, SULFA, TRIMETHOPRIM. MEDICATIONS: As an outpatient prior to admission included; 1. Prednisone. 2. Pantoprazole. 3. Albuterol. 4. Pramipexole. 5. Tramadol. 6. Multaq. 7. Eliquis. 8. Simvastatin. 9. Loratadine. 10. Guaifenesin. 11. Flunisolide. 12. Budesonide. 13. Tamsulosin. 14. Diltiazem. 15. Potassium. Here in the hospital he is on; 1. Levofloxacin. 2. Tramadol. 3. Tamsulosin. 4. Prednisone. 5. Pramipexole. 6. Pantoprazole. 7. Nystatin swish and swallow. 8. Inhalers. 9. Loratadine. 10. Lisinopril. 11. Multaq. 12. Diltiazem. 13. Eliquis. 14. Brovana. 15. Alprazolam. REVIEW OF SYSTEMS: Negative x10 systems reviewed except as stated in the history of present illness. PHYSICAL EXAMINATION: VITAL SIGNS: Temperature 98.6, pulse 88, blood pressure 114/59. GENERAL: He is in no acute distress. He is alert and oriented x3. HEENT: Eyes have no scleral icterus. Oropharynx is clear without lesions. No cervical or supraclavicular lymphadenopathy. LUNGS: Have diffuse bilateral inspiratory and expiratory wheezes. HEART: Regular rate and rhythm. ABDOMEN: Soft, nontender, and nondistended. Bowel sounds are present. EXTREMITIES: No lower extremity edema. LABORATORY DATA: White blood cell count 23.1, hemoglobin 12.5, platelets 133, creatinine 0.7. IMPRESSION: 1. 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 The lesion previously angioplastied could not be stented and now appears to have narrowed again. He has typical intestinal angina with pain after eating and avoidance of meals due to the pain associated with weight loss. The radiologist, Dr. Delfino Cox did indicate that he could repeat the balloon angioplasty as needed. His renal function is good. 2. Advanced chronic obstructive pulmonary disease and bronchiectasis, on home oxygen and recurrent hospitalizations. 3. Arrhythmia. RECOMMENDATIONS: 1. At this point, his heart and lung conditions are stabilized and near his baseline. 2. Regarding the intestinal angina, I would encourage him to follow through with the radiologist [place] to repeat angioplasty to the mesenteric artery. Even if he chooses to go a hospice route from a pulmonary standpoint, then angioplasty still would be a comfort measure just to keep him comfortable and pain-free after eating. He had dramatic improvement in his symptoms after the previous angioplasty. I discussed this with him and his family and they will think about it further. In the meantime, he can continue with a liquid diet as he tolerates and his family stated that they could drive him [place] for that procedure. It was done in a single day outpatient procedure last time and hopefully this could be repeated in a timely fashion if they chose to follow through with that. Job ID: [id number]
[2018-08-25] MEDS: Morphine 2 MG/ML SYRINGE SLOW IVP PRN ×6 (04:18→19:22)
[2018-08-25] MEDS: Arformoterol 15 MCG/2 ML NEB NEB SCH ×2 (08:00→19:02)
[2018-08-25] MEDS: Mometasone/Formoterol 120 PUFF INHALER INH SCH ×2 (08:01→18:58)
--- NOTE | 2018-08-25 08:54 | PRG ---
DATE OF SERVICE: 08/25/2018 SUBJECTIVE: This morning, he is still complaining of some vague abdominal pain. Danielle Mena felt this was probably due to stenosis of his superior mesenteric artery or celiac artery. Though this morning, he said it is feeling better, still weak. OBJECTIVE: VITAL SIGNS: Saturations are 93% on 3 L, respirations 16, temperature 98, blood pressure 140/64. CHEST: Decreased breath sounds. No wheezing. CARDIAC: Normal S1 and S2. No gallop. ABDOMEN: No mass. ASSESSMENT: 1. Abdominal pain, felt to be ischemic in origin, not treatable. 2. End-stage chronic obstructive pulmonary disease, bronchiectasis. 3. Supraventricular tachycardia. PLAN: 1. Continue present comfort care. 2. Disposition as per primary care physician. Job ID: [id number]
[2018-08-25] MEDS: Pramipexole Di-HCl 1 MG TAB PO SCH ×4 (08:59→19:55)
[2018-08-25] MEDS: predniSONE 20 MG TAB PO SCH (08:59)
[2018-08-25] MEDS: Lisinopril 10 MG TAB PO SCH (08:59)
[2018-08-25] MEDS: Apixaban 5 MG TAB PO SCH ×2 (08:59→19:55)
[2018-08-25] MEDS: Dronedarone HCl 400 MG TAB PO SCH ×2 (09:00→16:59)
[2018-08-25] MEDS: Nystatin 500,000 UNITS/5 ML UDCUP SSW SCH ×4 (09:00→19:57)
[2018-08-25] MEDS: traMADol HCl 50 MG TAB PO PRN ×2 (10:11→19:55)
--- NOTE | 2018-08-25 13:08 | PRG ---
DATE OF SERVICE: 08/25/2018 SUBJECTIVE: Mr. Banks still gets pain following eating in epigastric region. His cardiopulmonary symptoms have improved. OBJECTIVE: GENERAL: He is resting comfortably. ABDOMEN: No significant tenderness to palpation. VITAL SIGNS: Temperature is 97.8, pulse 105, and blood pressure 120/62. IMPRESSION: Intestinal angina/ischemia. The symptoms have flared back up again over the last couple of weeks. I would encourage him to follow up with Interventional Radiology in [place] to repeat angioplasty to his mesenteric artery. He had marked clinical improvement with the procedure previously. I would anticipate discharge home today. He was also encouraged to take supplements such as Ensure or Boost to try to maximize his nutritional intake in the meantime. Job ID: [id number]
--- NOTE | 2018-08-25 15:14 | PDOC.PN ---
- Subjective Encounter Start Date: 08/25/18 Encounter Start Time: 10:45 Abd pain is much improved. Still present. Did not eat. A little afraid to do so. - Objective Resuscitation Status - Order Detail: 08/18/18 01:58 Resuscitation Status Routine Resuscitation Status: DNAR: NO Resuscitation Discussed with: Patient Vital Signs & Weight: Vital Signs (12 hours) Temp Pulse Resp BP BP Pulse Ox 08/25/18 13:41 84 16 94 L 08/25/18 11:25 97.8 F 105 H 20 120/62 95 08/25/18 08:01 93 L 08/25/18 08:00 82 16 93 L 08/25/18 07:45 93 L 08/25/18 07:39 98.7 F 97 18 145/64 H 93 L 08/25/18 04:24 87 18 134/62 93 L Weight Admit Weight 138 lb 1 oz Weight 138 lb 14.259 oz I&O: 08/24/18 08/25/18 08/26/18 06:59 06:59 06:59 Intake Total 1500 240 Output Total 420 350 Balance 1080 -110 Result Diagrams: 08/23/18 04:19 08/23/18 04:19 Phys Exam - Physical Examination Constitutional: NAD Respiratory: no wheezing, no rales Diminished. Cardiovascular: RRR, no significant murmur Gastrointestinal: soft, non-tender, no distention Musculoskeletal: no edema Psychiatric: normal affect, A&O x 3 Skin: normal turgor Dx/Plan (1) Acute on chronic respiratory failure with hypoxia Code(s): J96.21 - ACUTE AND CHRONIC RESPIRATORY FAILURE WITH HYPOXIA Status: Acute Comment: significantly improved (2) COPD exacerbation Code(s): J44.1 - CHRONIC OBSTRUCTIVE PULMONARY DISEASE W (ACUTE) EXACERBATION Status: Acute Comment: Improving, on oxygen, oral steroids, bronchodilators, and oral levofloxacin (3) SVT (supraventricular tachycardia) Code(s): I47.1 - SUPRAVENTRICULAR TACHYCARDIA Status: Acute Comment: continue Cardizem CD (4) Anemia Code(s): D64.9 - ANEMIA, UNSPECIFIED Status: Chronic (5) Bronchiectasis Code(s): J47.9 - BRONCHIECTASIS, UNCOMPLICATED Status: Chronic (6) Dyslipidemia Code(s): E78.5 - HYPERLIPIDEMIA, UNSPECIFIED Status: Chronic Comment: continue simvastatin (7) History of deep venous thrombosis or pulmonary embolus Code(s): [id number] - Status: Chronic (8) Hypertension Code(s): I10 - ESSENTIAL (PRIMARY) HYPERTENSION Status: Chronic Qualifiers: Comment: Pt started on lisinopril (9) Thrush Code(s): B37.0 - CANDIDAL STOMATITIS Status: Acute (10) Abdominal pain Code(s): R10.9 - UNSPECIFIED ABDOMINAL PAIN Status: Acute Comment: Intestinal angina - Plan * Stable from the cardiac and pulm standpoint. * Abdominal pain persists. * Discussed with GI yesterday. Possibility he could get angioplasty again. * He is not sure he wants to pursue that because he is not sure his lungs are up to the challenge. * His daughter will be in later and he will discuss options. * Discussed with Palliative Care MOLDER FEEDER and she will help facilitate their conversation as needed. * He lives alone and cannot likely go home with this degree of abdominal pain.
--- NOTE | 2018-08-25 15:25 | PDOC.PALCO ---
Palliative Care Consult - Consult Details Requesting Physician: Dr Jesus Reason for Consult: complex decision-making - Social History Alcohol Use: none Drug Use History: none Living Situation: independent - Allergies Allergies/Adverse Reactions: Allergies Allergy/AdvReac Type Severity Reaction Status Date / Time meperidine HCl [From Demerol] Allergy Intermediate Nausea Verified 08/18/18 14: 57 codeine Allergy Verified 08/18/18 14:57 Penicillins Allergy Rash Verified 08/18/18 14:57 sulfamethoxazole Allergy Rash Verified 08/18/18 14:57 [From Bactrim] trimethoprim [From Bactrim] Allergy Rash Verified 08/18/18 14:57 - Subjective Patient awake, alert. Wears hearing aids. O2 dependent. Consult to assist with conversation related to complex disease processes. Patient inital visit requested I return to visit with his daughter. Upon next encounter with patient his son and [id number] were present and would convey conversation to patient daughter. - Objective Vital Signs: Vital Signs - Most Recent Temp Pulse Resp BP Pulse Ox 97.8 F 84 16 120/62 94 L 08/25/18 11:25 08/25/18 13:41 08/25/18 13:41 08/25/18 11:25 08/25/18 13:41 Palliative Performance Scale: 50 - Physical Exam Constitutional: NAD Deviation from normal: resting, remains with little intake as per patient. Pale , fatigued HEENT: moist MMs, EOMI Deviation from normal: Bilateral hearing loss Deviation from normal: diminished to bases, mildly labored with speech Cardiovascular: RRR Psychiatric: normal affect Skin: normal turgor - Problem List (1) Palliative care encounter Code(s): Z51.5 - ENCOUNTER FOR PALLIATIVE CARE Current Visit: Yes Status: Acute (2) Abdominal pain Code(s): R10.9 - UNSPECIFIED ABDOMINAL PAIN Current Visit: Yes Status: Acute (3) COPD (chronic obstructive pulmonary disease) Current Visit: No Status: Chronic - Plan/Recommendations Plan: Family and patient asked few questions. Son asked about Hospice, what was provided. Discussed goal for patient to return home. Patients was on hospice in the past, but only for 3 days prior to her . Discussed with patient and family that patients can be on hospice for lengthy periods of time. Information was given to patient and family on how to contact Palliative Care Team to for further questions on managing patients chronic disease processes to ensure goals of patient and quality of life. Communicated to Komal Verma RNbutton sewing machine operator and DR Jesus [40] minutes spent on this encounter with >50% of the time in counseling and coordination of care. Thank you for this very appropriate consult.
[2018-08-25] MEDS: Bisacodyl 5 MG TAB PO PRN (16:59)
--- NOTE | 2018-08-25 17:14 | PDOC.EVN ---
Event Note - Event Note Event Note: Talked with the patient's daughter. They have talked and decided to pursue the potential angioplasty. She has contacted Dr. Cox who did the prior angioplasty. He would be willing to try again. I have called his office at [phone]. Left a message, then called again. Spoke with the paradi operator at his practice. She ultimately sent him an email in hopes that he would call me back. If he accepts, will likely need to find a hospitalist at [facility] to accept. Will go through the transfer center at that point.
[2018-08-25] MEDS: ALPRAZolam 0.25 MG TAB PO PRN (19:57)
[2018-08-25] MEDS: Tamsulosin HCl 0.4 MG CAP PO SCH (19:57)
[2018-08-25] MEDS ORDERED: HYDROcodone/Acetaminophen 7.5/325 mg Tablet PO SCH (20:15)
[2018-08-26] MEDS ORDERED: Ondansetron PF 4 MG/2 ML Vial IVP PRN (00:25)
[2018-08-26] MEDS ORDERED: HYDROcodone/Acetaminophen 7.5/325 mg Tablet PO SCH (02:15)
[2018-08-26] MEDS: Mometasone/Formoterol 120 PUFF INHALER INH SCH ×2 (07:02→18:51)
[2018-08-26] MEDS: Arformoterol 15 MCG/2 ML NEB NEB SCH ×2 (07:02→18:48)
[2018-08-26] MEDS: predniSONE 20 MG TAB PO SCH (08:25)
[2018-08-26] MEDS: Nystatin 500,000 UNITS/5 ML UDCUP SSW SCH ×2 (08:25→13:04)
[2018-08-26] MEDS: Apixaban 5 MG TAB PO SCH ×2 (08:26→20:11)
[2018-08-26] MEDS: Lisinopril 10 MG TAB PO SCH (08:26)
[2018-08-26] MEDS: traMADol HCl 50 MG TAB PO PRN ×2 (08:26→14:17)
[2018-08-26] MEDS: Pramipexole Di-HCl 1 MG TAB PO SCH ×4 (08:26→20:11)
[2018-08-26] MEDS: Dronedarone HCl 400 MG TAB PO SCH ×2 (08:26→16:45)
[2018-08-26] MEDS: Morphine 2 MG/ML SYRINGE SLOW IVP PRN ×2 (11:37→20:15)
--- NOTE | 2018-08-26 12:49 | RAD ---
EXAM: Single view of the abdomen HISTORY: Abdominal pain and distention COMPARISON: None FINDINGS: Single view of the abdomen shows a nonspecific, nonobstructive bowel gas pattern. Air-fille d loops of small bowel and colon are seen. Air and stool is seen in the rectum. No suspicious calcifications are seen. Degenerative changes and scoliotic curvature of the spine are seen. Vascul ar calcifications are seen. IMPRESSION: Unremarkable exam
--- NOTE | 2018-08-26 16:14 | PDOC.PN ---
- Subjective Encounter Start Date: 08/26/18 Encounter Start Time: 09:00 Still having some pain in the abdomen. Waited too long to ask for meds last night and then took some time to get the meds. Pain became for severe and he vomited once. Better this morning, but still present. No BM for a couple of days. Has had medicine for it today. - Objective Resuscitation Status - Order Detail: 08/18/18 01:58 Resuscitation Status Routine Resuscitation Status: DNAR: NO Resuscitation Discussed with: Patient Vital Signs & Weight: Vital Signs (12 hours) Temp Pulse Pulse Pulse Resp BP BP 08/26/18 14:07 82 16 08/26/18 11:30 98.0 F 95 16 08/26/18 11:06 102 H 98 134/60 141/62 H 08/26/18 08:15 97.7 F 102 H 18 08/26/18 07:01 91 16 BP Pulse Ox Pulse Ox Pulse Ox 08/26/18 14:07 94 L 08/26/18 11:30 135/67 92 L 08/26/18 11:06 84 L 90 L 08/26/18 08:15 136/63 93 L 08/26/18 07:01 95 Weight Admit Weight 138 lb 1 oz Weight 140 lb 3.424 oz I&O: 08/25/18 08/26/18 08/27/18 06:59 06:59 06:59 Intake Total 240 Output Total 350 Balance -110 Result Diagrams: 08/23/18 04:19 08/23/18 04:19 Phys Exam - Physical Examination Constitutional: NAD Respiratory: no wheezing, no rales Diminished Cardiovascular: RRR Gastrointestinal: soft Slightly distended. Hyper-resonant. Musculoskeletal: no edema Psychiatric: normal affect, A&O x 3 Deviation from normal: Slightly groggy. Dx/Plan (1) Acute on chronic respiratory failure with hypoxia Code(s): J96.21 - ACUTE AND CHRONIC RESPIRATORY FAILURE WITH HYPOXIA Status: Acute (2) COPD exacerbation Code(s): J44.1 - CHRONIC OBSTRUCTIVE PULMONARY DISEASE W (ACUTE) EXACERBATION Status: Acute (3) SVT (supraventricular tachycardia) Code(s): I47.1 - SUPRAVENTRICULAR TACHYCARDIA Status: Acute (4) Anemia Code(s): D64.9 - ANEMIA, UNSPECIFIED Status: Chronic (5) Bronchiectasis Code(s): J47.9 - BRONCHIECTASIS, UNCOMPLICATED Status: Chronic (6) Dyslipidemia Code(s): E78.5 - HYPERLIPIDEMIA, UNSPECIFIED Status: Chronic Comment: continue simvastatin (7) History of deep venous thrombosis or pulmonary embolus Code(s): [id number] - Status: Chronic (8) Hypertension Code(s): I10 - ESSENTIAL (PRIMARY) HYPERTENSION Status: Chronic Qualifiers: Comment: Pt started on lisinopril (9) Thrush Code(s): B37.0 - CANDIDAL STOMATITIS Status: Acute (10) Abdominal pain Code(s): R10.9 - UNSPECIFIED ABDOMINAL PAIN Status: Acute Comment: Intestinal angina - Plan * Continue PRN pain meds, including IV morphine. * KUB to ensure there is no obstruction. * Decrease Prednisone. * Stopy nystatin. * Dulcolax. * Explained that the IR Dr. Cox would not likely be the accepting doc at [facility]. Would likely be hospitalist. They won't accept without IR approval and that probably won't happen before Tuesday.
--- NOTE | 2018-08-26 18:00 | PRG ---
DATE OF SERVICE: 08/26/2018 INTERVAL HISTORY: The patient is doing fine from respiratory standpoint. He is breathing comfortably. He is down to 3 L nasal cannula, which is his home dose. He did not have any fevers or chills overnight. He did not wake up gasping, choking, or coughing. Otherwise, he feels like his breathing is essentially back to baseline. His biggest issue right now is his belly. Apparently, he is waiting to go to [place], possibly as early as Tuesday. PHYSICAL EXAMINATION: VITAL SIGNS: Afebrile, pulse 101, blood pressure 122/66, respirations 18, saturation 92% on 3 L nasal cannula. GENERAL: The patient is awake and alert, in no apparent distress. LUNGS: Decent air entry. Crackles are present dependently. There are some rhonchi present. I do not appreciate any wheezing. HEART: Normal rate and regular. ABDOMEN: Soft. Distended. Bowel sounds present. No rebound or guarding is present. MUSCULOSKELETAL: No cyanosis or clubbing. The pitting edema is resolved. : No Severino. NEUROLOGIC: Grossly nonfocal. LABORATORY DATA: WBC 23.1, hemoglobin 12.5, platelets 133,000. Band count is 11% on top of 83% neutrophils. D-dimer is 0.67. Bicarb 32, chloride 97, sodium 135. Basic metabolic profile is otherwise unremarkable. Respiratory culture is negative to date. IMAGING DATA: Abdominal x-ray demonstrates nonobstructive bowel gas pattern. ASSESSMENT: 1. Acute on chronic hypoxic respiratory failure. 2. Chronic obstructive pulmonary disease with acute exacerbation. 3. Bronchiectasis. 4. Intestinal angina. DISCUSSION AND PLAN: We will continue supportive care for his COPD. Pulmonary/Critical Care will continue to follow along while the patient remains inhouse. Job ID: [id number] MTDD
[2018-08-26] MEDS: Tamsulosin HCl 0.4 MG CAP PO SCH (20:11)
[2018-08-27] MEDS: Morphine 2 MG/ML SYRINGE SLOW IVP PRN ×7 (02:03→20:11)
[2018-08-27] MEDS: Mometasone/Formoterol 120 PUFF INHALER INH SCH ×2 (06:55→18:39)
[2018-08-27] MEDS: Arformoterol 15 MCG/2 ML NEB NEB SCH ×2 (06:56→18:38)
[2018-08-27] MEDS ORDERED: predniSONE 20 MG TAB PO SCH (08:00)
[2018-08-27] MEDS: Pramipexole Di-HCl 1 MG TAB PO SCH ×4 (08:57→20:11)
[2018-08-27] MEDS: Lisinopril 10 MG TAB PO SCH (08:57)
[2018-08-27] MEDS: Dronedarone HCl 400 MG TAB PO SCH ×2 (08:57→17:42)
[2018-08-27] MEDS: Apixaban 5 MG TAB PO SCH (08:58)
[2018-08-27] MEDS: predniSONE 5 MG TAB PO SCH (08:58)
--- NOTE | 2018-08-27 15:27 | PDOC.PN ---
- Subjective Encounter Start Date: 08/27/18 Encounter Start Time: 12:15 Continues to have abdominal pain. Now constant and continues to require IV meds. Not eating much at all now. - Objective Resuscitation Status - Order Detail: 08/18/18 01:58 Resuscitation Status Routine Resuscitation Status: DNAR: NO Resuscitation Discussed with: Patient Vital Signs & Weight: Vital Signs (12 hours) Temp Pulse Resp BP BP Pulse Ox 08/27/18 13:44 100 16 08/27/18 11:42 98.3 F 88 18 108/59 L 94 L 08/27/18 08:05 98.3 F 103 H 18 127/61 94 L 08/27/18 07:15 94 L 08/27/18 06:56 91 14 08/27/18 04:00 97.9 F 100 20 130/57 L 92 L Weight Admit Weight 138 lb 1 oz Weight 135 lb 12.876 oz I&O: 08/26/18 08/27/18 08/28/18 06:59 06:59 06:59 Intake Total 491 Output Total 450 Balance 41 Result Diagrams: 08/23/18 04:19 08/23/18 04:19 Phys Exam - Physical Examination Somnolent but easily awakened. Respiratory: no wheezing, no rales Cardiovascular: RRR, no significant murmur Gastrointestinal: soft Distended, but soft. Bowel sounds present. Diffusely, moderately tender. Musculoskeletal: no edema Psychiatric: normal affect, A&O x 3 Dx/Plan (1) Acute on chronic respiratory failure with hypoxia Code(s): J96.21 - ACUTE AND CHRONIC RESPIRATORY FAILURE WITH HYPOXIA Status: Acute (2) COPD exacerbation Code(s): J44.1 - CHRONIC OBSTRUCTIVE PULMONARY DISEASE W (ACUTE) EXACERBATION Status: Acute (3) SVT (supraventricular tachycardia) Code(s): I47.1 - SUPRAVENTRICULAR TACHYCARDIA Status: Acute (4) Anemia Code(s): D64.9 - ANEMIA, UNSPECIFIED Status: Chronic (5) Bronchiectasis Code(s): J47.9 - BRONCHIECTASIS, UNCOMPLICATED Status: Chronic (6) Dyslipidemia Code(s): E78.5 - HYPERLIPIDEMIA, UNSPECIFIED Status: Chronic Comment: continue simvastatin (7) History of deep venous thrombosis or pulmonary embolus Code(s): [id number] - Status: Chronic (8) Hypertension Code(s): I10 - ESSENTIAL (PRIMARY) HYPERTENSION Status: Chronic Qualifiers: Comment: Pt started on lisinopril (9) Thrush Code(s): B37.0 - CANDIDAL STOMATITIS Status: Acute (10) Abdominal pain Code(s): R10.9 - UNSPECIFIED ABDOMINAL PAIN Status: Acute Comment: Intestinal angina - Plan * Discussed with Dr. Lubin. * XR was negative for ileus or obstruction. * He will try to place NGT and see if he can decompress his abdomen. If not, he will remove it. * He will also check for impaction. * I have spoken with the patient and his son. Patient would like to ensure that he is going to transfer to Dr. Cox. * I have worked through the transfer center and spoken with Dr. Eden at [facility]. She is going to try to contact Dr. Cox and see when he would like to get the patient transferred for possible angioplasty. * Holding the Eliquis. (hx of dvt) * Continue pain management. * Stable from the standpoint of the SVT and COPD. * Will start some IVF. * Continue to wean the steroids started for the COPD. * Still on Levaquin as part of the treatment for the COPD exac, but that can likely be stopped tomorrow.
[2018-08-27] MEDS ORDERED: Bisacodyl 10 MG SUPP PR SCH (15:30)
--- NOTE | 2018-08-27 16:42 | PRG ---
DATE OF SERVICE: 08/27/2018 SERVICE: Pulmonary Medicine. INTERVAL HISTORY: The patient is doing okay from respiratory standpoint. When he gets up, he still has dyspnea that slows him down. That being said, once again his biggest complaint is more about his abdomen. He denies any current fevers or chills. There were no significant overnight events otherwise. Anytime he eats any food, he has some discomfort, and starts belching significantly. PHYSICAL EXAMINATION: VITAL SIGNS: Afebrile, pulse 88, blood pressure 108/59, respirations 18, saturation 94% on 3 L nasal cannula. GENERAL: The patient is awake and alert, in no apparent distress. LUNGS: Decent air entry. There is a prolonged expiratory phase. I hear some wheezing. No rhonchi or crackles are appreciated. HEART: Normal rate and regular. ABDOMEN: Distended. Bowel sounds are active. There is some mild tenderness to palpation without rebound or guarding. : No Severino. NEUROLOGIC: Nonfocal. MUSCULOSKELETAL: No cyanosis or clubbing. There is no pitting edema. LABORATORY DATA: WBC 23.1, hemoglobin 12.5, platelets 133,000. Band count is increasing to 11% on top of 83% neutrophils. Bicarb 32. Basic metabolic profile is otherwise unremarkable. ASSESSMENT: 1. Chronic obstructive pulmonary disease with acute exacerbation. 2. Bronchiectasis with exacerbation. 3. Intestinal angina. DISCUSSION AND PLAN: Agree with gentle hydration. Pulmonary/Critical Care will continue to follow along, intermittently while the patient remains inhouse. Dr. Russell will assume care in the morning. From a purely respiratory standpoint, he can go home, though we are awaiting final disposition from GI regarding his intermittently ischemic gut. Job ID: [id number]
[2018-08-27] MEDS: D5 1/2 NS 500 ML IV SCH (17:43)
[2018-08-27] MEDS ORDERED: Fleet Enema 133 ML BOT PR SCH (19:15)
[2018-08-27] MEDS: Tamsulosin HCl 0.4 MG CAP PO SCH (20:11)
[2018-08-28] MEDS: Morphine 2 MG/ML SYRINGE SLOW IVP PRN ×7 (02:13→23:06)
[2018-08-28 02:30] LABS: #Lymphocytes 0.4 thou/uL (1.20-3.40); #Neutrophils 20.4 thou/uL (1.40-6.50); %Eosinophils 0.1 % (0.0-10.0); %Lymphocytes 1.5 % (21.0-51.0); %Monocytes 12.4 % (0.0-10.0); Hemoglobin 11.2 g/dL (14.0-18.0); Mean Corpuscular HGB CONC 31.7 g/dL (32.0-36.0); Mean Corpuscular Hemoglobin 35.7 pg (27.0-31.0); Mean Platelet Volume 7.1 fL (7.4-10.4); Platelet Count 166 thou/uL (130-400); RBC Distribution Width 12.8 % (11.5-14.5); Red Blood Cell (RBC) Count 3.15 mill/uL (4.70-6.10); White Blood Cell (WBC) Count 23.7 thou/uL (4.8-10.8)
[2018-08-28 02:39] LABS: Anion Gap 12 mmol/L (10-20); BUN (Urea Nitrogen) 21 mg/dL (8.4-25.7); Calc. Creatinine Clearance 64 mL/min (70-130); Calcium 8.8 mg/dL (7.8-10.44); Carbon Dioxide 30 mmol/L (23-31); Chloride 96 mmol/L (98-107); Estimated GFR-MDRD Greater than 90; Glucose 111 mg/dL (83-110); Potassium 4.3 mmol/L (3.5-5.1); Sodium 134 mmol/L (136-145)
[2018-08-28] MEDS: Mometasone/Formoterol 120 PUFF INHALER INH SCH ×2 (06:24→18:26)
[2018-08-28] MEDS: Arformoterol 15 MCG/2 ML NEB NEB SCH ×2 (06:24→18:26)
--- NOTE | 2018-08-28 07:49 | RAD ---
Chest one view HISTORY: Productive cough. COMPARISON: 08/17/2018. FINDINGS: Cardiac silhouette is magnified and upper limits of normal in size. Pulmonary vasculature i s unremarkable. Mediastinum is midline with aortic calcification. Calcification over the right apical pleura is similar in appearance and position. Coarse interstitial markings and calcified granulomata are unchanged in appearance. IMPRESSION: Fibrotic changes and other chronic-type findings are stable. Atherosclerosis.
--- NOTE | 2018-08-28 08:32 | PRG ---
DATE OF SERVICE: 08/28/2018 SUBJECTIVE: This morning, he is weak. He is still having abdominal pain. OBJECTIVE: VITAL SIGNS: His saturations are 93% on 3 L, pulse 101, temperature 98, blood pressure 117/58. GENERAL: He told me coughed a little bit of blood yesterday, minimal. CHEST: Reveals decreased breath sounds. Bilateral rhonchi, crackles. CARDIAC: Normal S1, S2. No gallops. ABDOMEN: No masses. LABORATORY DATA: His white count is still elevated at 23,000. Lytes are normal. IMAGING STUDIES: X-ray shows stable and bilateral chronic infiltrates. IMPRESSION AND PLAN: 1. Chronic bronchitis, bronchiectasis, hemoptysis secondary to that. 2. Chronic respiratory failure. Secondary to #1. 3. Abdominal pain. Ischemic bowel. Gastrointestinal is considered transferring him to [place] for a possible intervention, for angioplasty of his mesenteric artery. If this is unsuccessful, the patient told me he wants to get hospice care. He is concerned about his chronic pain and poor lifestyle. Pulmonary watkins, continue low dose prednisone. Supportive care, PT. Job ID: [id number]
[2018-08-28] MEDS: Pramipexole Di-HCl 1 MG TAB PO SCH ×4 (08:41→20:31)
[2018-08-28] MEDS: predniSONE 5 MG TAB PO SCH (08:41)
[2018-08-28] MEDS: Lisinopril 10 MG TAB PO SCH (08:41)
[2018-08-28] MEDS: Dronedarone HCl 400 MG TAB PO SCH ×2 (08:42→16:14)
[2018-08-28] MEDS: D5 1/2 NS 500 ML IV SCH ×3 (08:52→22:29)
--- NOTE | 2018-08-28 11:06 | PDOC.PN ---
- Subjective Encounter Start Date: 08/28/18 Encounter Start Time: 11:04 Subjective: :not too good" - Objective Resuscitation Status - Order Detail: 08/18/18 01:58 Resuscitation Status Routine Resuscitation Status: DNAR: NO Resuscitation Discussed with: Patient [place] Reviewed: Yes Vital Signs & Weight: Vital Signs (12 hours) Temp Pulse Resp BP BP BP Pulse Ox 08/28/18 08:41 117/58 L 08/28/18 08:00 88 L 08/28/18 07:46 98.0 F 101 H 20 117/58 L 88 L 08/28/18 06:25 93 16 93 L 08/28/18 06:24 94 16 93 L 08/28/18 06:22 94 16 93 L 08/28/18 04:00 98 F 91 20 117/58 L 92 L Weight Admit Weight 138 lb 1 oz Weight 135 lb 6.4 oz I&O: 08/27/18 08/28/18 08/29/18 06:59 06:59 06:59 Intake Total 491 360 100 Output Total 450 480 Balance 41 -120 100 Result Diagrams: 08/28/18 02:14 08/28/18 02:14 Phys Exam - Physical Examination Neck: no JVD Respiratory: clear to auscultation bilateral Cardiovascular: RRR, no significant murmur Gastrointestinal: soft, positive bowel sounds Musculoskeletal: no edema Dx/Plan (1) Abdominal angina Code(s): K55.1 - CHRONIC VASCULAR DISORDERS OF INTESTINE Status: Acute (2) Abdominal pain Code(s): R10.9 - UNSPECIFIED ABDOMINAL PAIN Status: Acute Qualifiers: Abdominal location: generalized Qualified Code(s): R10.84 - Generalized abdominal pain Comment: Intestinal angina (3) Acute on chronic respiratory failure with hypoxia Code(s): J96.21 - ACUTE AND CHRONIC RESPIRATORY FAILURE WITH HYPOXIA Status: Acute Comment: significantly improved (4) COPD exacerbation Code(s): J44.1 - CHRONIC OBSTRUCTIVE PULMONARY DISEASE W (ACUTE) EXACERBATION Status: Acute Comment: Improving, on oxygen, oral steroids, bronchodilators, and oral levofloxacin (5) Bronchiectasis Code(s): J47.9 - BRONCHIECTASIS, UNCOMPLICATED Status: Chronic (6) Dyslipidemia Code(s): E78.5 - HYPERLIPIDEMIA, UNSPECIFIED Status: Chronic Comment: continue simvastatin (7) Hypertension Code(s): I10 - ESSENTIAL (PRIMARY) HYPERTENSION Status: Chronic Qualifiers: Hypertension type: essential hypertension Comment: Pt started on lisinopril - Plan transfer to [facility] for rpt abd angioplasty in progress -: cont tx for COPD, etc * .
--- NOTE | 2018-08-28 13:47 | PDOC.EVN ---
Event Note - Event Note Event Note: [facility]- palliative care consult
[2018-08-28] MEDS: traMADol HCl 50 MG TAB PO PRN (14:51)
[2018-08-28] MEDS: Tamsulosin HCl 0.4 MG CAP PO SCH (20:30)
[2018-08-28] MEDS: ALPRAZolam 0.25 MG TAB PO PRN (23:06)
[2018-08-29] MEDS: Morphine 2 MG/ML SYRINGE SLOW IVP PRN ×3 (05:45→09:58)
[2018-08-29] MEDS: Arformoterol 15 MCG/2 ML NEB NEB SCH (06:30)
[2018-08-29] MEDS: Mometasone/Formoterol 120 PUFF INHALER INH SCH (06:32)
[2018-08-29] MEDS: predniSONE 5 MG TAB PO SCH (07:39)
[2018-08-29] MEDS: Lisinopril 10 MG TAB PO SCH (07:39)
[2018-08-29] MEDS: Pramipexole Di-HCl 1 MG TAB PO SCH (07:39)
[2018-08-29] MEDS: Dronedarone HCl 400 MG TAB PO SCH (07:39)
[2018-08-29] MEDS: ALPRAZolam 0.25 MG TAB PO PRN (07:40)
--- NOTE | 2018-08-29 08:20 | DIS ---
DATE OF ADMISSION: 08/17/2018 DATE OF DISCHARGE: 08/29/2018 PRIMARY CARE PROVIDER: Sebastien Burger MD DISPOSITION: Discharged home. FINAL DIAGNOSES: Abdominal angina, chronic obstructive pulmonary disease with acute exacerbation, acute respiratory failure with hypoxemia, dyslipidemia, bronchiectasis, hypertension, atrial fibrillation, and chronic anticoagulation, DISCHARGE MEDICATIONS: 1. DuoNeb 3 mL t.i.d. 2. Albuterol HFA 2 puffs q.4 hours p.r.n. 3. Tramadol 50 mg p.o. t.i.d. p.r.n. 4. Multaq 200 mg p.o. b.i.d. 5. Symbicort 160/4.5 two puffs inhaled b.i.d. 6. Eliquis 5 mg p.o. b.i.d. 7. Lasix 20 mg p.o. b.i.d. p.r.n. 8. Protonix 40 mg a day. 9. Zocor 10 mg in the evening. 10. Mirapex 1.5 mg p.o. q.i.d. 11. Flomax 0.4 mg two tabs at bedtime. 12. Prednisone 5 mg p.o. daily p.r.n. 13. Potassium chloride 20 mEq p.o. daily. ALLERGIES: MEPERIDINE, CODEINE, PENICILLINS, SULFAMETHOXAZOLE, AND TRIMETHOPRIM. DIET: As tolerated. PENDING AT TIME OF DISCHARGE: Nothing. CODE STATUS: Do not resuscitate. HOSPITAL COURSE: The patient admitted to [facility] through [facility] with shortness of breath and cough. He has a history of bronchiectasis and COPD. He was put on aggressive therapy was IV antibiotics, IV steroids, discontinued on O2. Initial chest x-ray revealed chronic obstructive pulmonary disease with scarring, mild right pleural effusion, no infiltrates, no CHF. His laboratory comprehensive metabolic profile showed a chloride of 95 and a CO2 of 34, consistent with compensated respiratory failure. Blood sugar was 115. Renal function was normal. Liver function was normal. CBC had a mild elevated white count 11.7 consistent with steroids he was on, hemoglobin 12.0, and platelet count 195,000. He was seen in consultation by Dr. Tucker Lubin, Gastroenterology; Dr. Sandro Russell, Pulmonology and Dr. Devorah Fonseca, Cardiology. The patient had abdominal pain, had had a previous balloon angioplasty for abdominal angina. His symptoms had improved until approximately two weeks ago. The patient improved with his therapy for his pulmonary disease; however, we continued to be unable to do much without becoming severely short of breath. His group sales representative in [place] was consulted. Arrangements will be made for the patient to go to [place] for repeat angioplasty. When on 08/28/2018, he changed his mind, he decided, he did not wish to undergo any therapy, he wished to have hospice. Family was in agreement. Hospice was consulted. He is going home today under hospice care. Medications for his current diseases have been confirmed. However, medications are subject to change with hospice. Job ID: [id number]
[2018-08-29] MEDS: D5 1/2 NS 500 ML IV SCH (08:59)
--- NOTE | 2018-08-29 09:18 | PRG ---
DATE OF SERVICE: 08/29/2018 SUBJECTIVE HISTORY: This morning, he is awake, alert, and responsive. He is still having abdominal pain. OBJECTIVE: VITAL SIGNS: His saturations are 91% on 2 L, respirations 16, temperature 97, pulse 87, and blood pressure 114/56. CHEST: Bilateral rhonchi and crackles. CARDIAC: Normal S1 and S2. No gallops. ABDOMEN: No masses. IMPRESSION: 1. Abdominal ischemia. Not going to [place] for any additional workup. 2. End-stage lung disease. PLAN: He is going to go home with hospice. Palliative care. Job ID: [id number]
[2018-08-29 11:41] VITALS: BP 106/57; TEMP 98.6
[2018-08-29] MEDS: traMADol HCl 50 MG TAB PO PRN (12:06)
== END 2018-08-29 13:14 | disposition hospice, home (50) | DRG 189 ==
LOC: ERS 21:51 → ERHOLD 22:43 → T4-B 08-18 14:49 → 2NO 08-19 20:42
PROVIDERS: ADMIT Internal Medicine; ATTEND Internal Medicine
DX: J96.21 Acute and chronic respiratory failure with hypoxia (principal); J44.1 Chronic obstructive pulmonary disease with (acute) exacerbation; K55.1 Chronic vascular disorders of intestine; I47.1 Supraventricular tachycardia; B37.0 Candidal stomatitis; I77.4 Celiac artery compression syndrome; Z66 Do not resuscitate; Z51.5 Encounter for palliative care; K21.9 Gastro-esophageal reflux disease without esophagitis; I10 Essential (primary) hypertension; E78.5 Hyperlipidemia, unspecified; M19.90 Unspecified osteoarthritis, unspecified site; F41.9 Anxiety disorder, unspecified; F32.9 Major depressive disorder, single episode, unspecified; K13.21 Leukoplakia of oral mucosa, including tongue; D64.9 Anemia, unspecified; I48.91 Unspecified atrial fibrillation; Z86.73 Personal history of transient ischemic attack (TIA), and cerebral infarction without residual deficits; Z85.46 Personal history of malignant neoplasm of prostate; Z90.49 Acquired absence of other specified parts of digestive tract; Z90.2 Acquired absence of lung [part of]; Z98.41 Cataract extraction status, right eye; Z98.42 Cataract extraction status, left eye; Z87.891 Personal history of nicotine dependence; Z88.0 Allergy status to penicillin; Z88.2 Allergy status to sulfonamides; Z88.5 Allergy status to narcotic agent; Z88.8 Allergy status to other drugs, medicaments and biological substances; Z79.01 Long term (current) use of anticoagulants; Z86.711 Personal history of pulmonary embolism
CPT/HCPCS: 36415; 70450; 71045; 71046; 72148; 74018; 80048; 80053; 83735; 83880; 84484; 85025; 85379; 87070; 87205; 93005; 93010; 94640; 94664; 94667; 94668; 96365; 96367; 96375; J0153; J0456; J0692; J0696; J1940; J2270; J2920; J2930; J3490; J7512; J7620